=== PATIENT | male | born 2000 | race Caucasian/White ===

== ENCOUNTER 2023-12-07 11:11 | Emergency (ER) | payer OTHER, SELFPAY ==
[2023-12-07 11:11] VITALS: BP 143/89; PULSE 95; RESP 14; TEMP 36.3; O2SAT 95; BMI 35.9
--- NOTE | 2023-12-07 11:20 | EX.ED.UPPERE ---
HPI History of Present Illness Chief Complaint: Laceration Detail of Chief Complaint: Laceration left index finger Informant: patient Onset/Context/Timing Onset: Today and Hours Context: Sudden Onset Timing: - (Patient has no pain.) Location: Radial side of left index finger proximal the PIP joint Current Severity: Gone Maximum Severity: Moderate Worsened by: Injury, initial Relieved by: Not applicable Associated Symptoms Associated Symptoms: Negative for Parasthesia, Weakness or Loss of Funtion Narrative Narrative: Patient is a 23-year-old [id number] male. He presents because of laceration left index finger. This occurred at work. He was using a knife when this happened. He sustained a oblique laceration radial side of the left index finger proximal of the PIP joint. He denies paresthesia, anesthesia motors. He denies loss of function. Who presents because of bleeding. He is on no anticoagulant or antithrombotic Tetanus Immunization: >10 years Prior similar symptoms: No Recent Illness/Hospitalization: No PFSH PFSH Medical History no medical history no medical history Home Medications ?Medication ?Instructions ?Recorded ?Last Taken ?Type cephalexin 500 mg capsule 500 mg PO Q6 #12 CAPSULES 12/07/23 Unknown Rx Allergy/AdvReac Type Severity Reaction Status Date / Time No Known Allergies Allergy Verified 12/07/23 11:12 Family History no significant family his Surgical History no surgical history no surgical history Social History Smoking Status: Never smoker ROS ROS ED Neurologic Neurologic: Denies paresthesias or weakness Hematologic/Lymphatic Hematologic/Lymphatic: Denies easy bleeding or easy bruising EXAM Physical Exam Const Vital Signs: 12/07/23 11:11 Temperature 97.3 F L Temperature Source Temporal Pulse Rate 95 Respiratory Rate 14 Blood Pressure 143/89 H Blood Pressure Mean 107 Pulse Ox 95 Oxygen Delivery Method Room Air Positive well nourished and well developed General Appearance ED: well developed and NAD HEENT Reports moist mucous membranes normocephalic and atraumatic Eyes PERRL Neck full ROM Resp normal respiratory effort Cardio regular rate and regular rhythm Extremity full ROM; Negative for normal to inspection Extremity Narrative: Laceration radial side of left index finger. 2 point semination normal. Cap refill is normal. The flexor digitorum superficialis and flexor digitorum profundus are functionally intact. The extensor IntraSite tendon is functionally intact. Upon exploration prior to anesthetizing the digit there may be involvement of the extensor tendon. Will probe after patient's digit has been blocked. Psych mental status grossly normal Skin Trauma: laceration MDM MDM MDM Narrative Medical decision making narrative: Tetanus was updated and please read procedure note Procedures Other Procedures Procedure(s): Digit was anesthetized with 1% lidocaine by digital block. Upon exploration there was noted the patient did sustain a small laceration approximate 10% of the extensor NSI tendon on the radial side. He got the radial ulnar collateral ligament. There appears to be laceration involving the insertion of the lumbrical muscle to the tensor tendon. Wound was irrigated with 100 cc of sterile saline. The laceration was closed using 5-0 Ethilon. A total of [address] patient in a splint and refer to [place] [facility]. Discharge Plan Triage Chief Complaint: Laceration ED Provider: Aiden Frias Dx/Rx/DC Orders Clinical Impression: Laceration of left index finger with tendon involvement Prescriptions: New cephalexin 500 mg capsule 500 mg PO Q6 Qty: 12 0RF Primary Care Provider: Care Physician,No Primary Referrals: Care Physician,No Primary [Primary Care Provider] - Activity Restrictions/Additional Instructions: Call the [facility] group and inform them the you were seen in the emergency room and have a laceration to your left index finger and there is concern that you got part of your extensor tendon and the collateral ligament on the radial side and lateral bands. You can follow-up with Dr. Charles Szymanski or Abida Navarro telephone #[phone] Wear splint until seen by hand surgeon Print Language: Icelandic Disposition Disposition: Home, Self Care
[2023-12-07] MEDS: Diphth,Pertuss(Acell),Tet Vac 0.5 ML Vial IM (11:34)
[2023-12-07] MEDS: Lidocaine 1% (20 ml mdv) 20 ML Vial INFILT (11:35)
--- NOTE | 2023-12-07 12:44 | ED.RN ---
This RN spoke with Efren pt. manage who stated he did not need drug or alcohol testing.
[2023-12-07 13:03] VITALS: BP 142/72; PULSE 78; RESP 19; TEMP 36.4; O2SAT 97
== END 2023-12-07 13:04 | disposition home or self-care (01) ==
PROVIDERS: Emergency Provider Emergency Medicine; Visit Provider Emergency Medicine
DX: S61.211A Laceration without foreign body of left index finger without damage to nail, initial encounter (principal); X58.XXXA Exposure to other specified factors, initial encounter
CPT/HCPCS: 12001; 90715; 99284

== ENCOUNTER 2025-06-05 13:43 | Emergency (ER) | payer BC, SELFPAY ==
[2025-06-05 13:44] VITALS: BP 154/100; PULSE 91; RESP 16; TEMP 36.2; O2SAT 100
--- NOTE | 2025-06-05 15:11 | VDLE_ITS ---
Reason For Study Reason For Study: LLE PAIN RIGHT LEFT CFV is compressible, spontaneous, phasic, competent GSV is normal. and demonstrates normal augmentation. CFV is compressible, spontaneous, phasic, competent, Procedure and demonstrates normal augmentation. This is a venous duplex using B-mode, color flow and FV is compressible, spontaneous, phasic, competent spectral Doppler. and demonstrates normal augmentation. Exam performed portable in ED. POP V is compressible, spontaneous, phasic, competent A preliminary report was called and/or faxed to ED @ and demonstrates normal augmentation. 15:35. T/P Trunk is compressible. PTV is compressible. LT PerV is compressible. VL/Venous Duplex US, Unilateral Interpretation Summary Deep veins of the left lower extremity are patent and compressible segmentally. There is no evidence of left lower extremity deep vein thrombosis. Valvular competence appears intact within the p roximal deep venous system on the left . The left great saphenous vein appears patent and compressible segmentally. The right common femoral vein is patent and compressible . Ordering Physician: Adonis Russ Referring Physician: LISA PCP Performed By: Agnieszka Barrientos, MELISSA, RVT
--- NOTE | 2025-06-05 15:12 | ED.VIS.LOWEX ---
HPI History of Present Illness HPI Narrative: 25-year-old male no [facility] past medical or surgical history. He has had atraumatic pain behind his left knee in the patella fossa for the last 5 days. It comes and goes. No chest pain. No shortness of breath. No history of DVT or PE. No recent travel, surgery or immobilization. Mom and sister have had blood clots in the past. But he does not believe they have a clotting disorder. He denies any weakness to his leg. Nothing particular makes it better or worse. No swelling. No other complaints. Chief Complaint: Lower Extremity Injury Informant: patient Occured/Mechanism Mechanism/Context: No injury and No blunt trauma Onset/Context/Timing Onset: Days Context: Gradual Onset Timing: Intermittent Quality of Pain: Dull and Aching Location: Dull pain behind his left patella fossa. Current Severity: Gone Maximum Severity: Mild Associated Symptoms Associated Symptoms: Negative for Parasthesia, Weakness or Loss of Funtion Narrative Narrative: Healthy 25-year-old male with atraumatic pain in his left patella fossa intermittent for 5 days. No DVT or PE history or risk factors mom and sister reportedly that blood clots but he does not believe they have a clotting disorder. Prior similar symptoms: No Recent Illness/Hospitalization: No PFSH PFSH Medical History no medical history no medical history Home Medications ?Medication ?Instructions ?Recorded ?Last Taken ?Type cephalexin 500 mg capsule 500 mg PO Q6 #12 CAPSULES 12/07/23 Unknown Rx Allergy/AdvReac Type Severity Reaction Status Date / Time No Known Allergies Allergy Verified 06/05/25 13:44 Family History no significant family his Surgical History Hx of adenoidectomy History of placement of ear tubes Social History Smoking Status: Light Smoker (<10/day) ROS ROS ED ROS Narrative Denies recent illness. Constitutional Constitutional ED: Denies chills or fever(s) Eyes Eyes: Denies blurry vision ENT ENT ED: Denies ear pain Cardiovascular Cardiovascular: Denies chest pain Respiratory/Chest Respiratory/Chest: Denies cough Gastrointestinal Gastrointestinal: Denies abdominal pain Genitourinary Genitourinary ED: Denies dysuria Integumentary Denies abscess Neurologic Neurologic: Denies headache(s) Psychiatric Psychiatric: Denies anxiety Endocrine Endocrinology: Denies polydipsia Hematologic/Lymphatic Hematologic/Lymphatic: Denies easy bleeding Allergic/Immunologic Allergic/Immunologic ED: Denies mouth swelling, tongue swelling or urticaria EXAM Physical Exam Narrative Exam Narrative: Well-appearing 25-year-old male. Vital signs stable afebrile. Pulse ox 100% on room air no signs hypoxia. Blood pressure is mildly elevated 154/100. H EENT exam pupils round react light. Moist mutes membranes. Neck nontender no JVD. No lymphadenopathy. Lungs clear to auscultation bilaterally. Heart regular rhythm rate about 90 no murmur. Chest wall ribs nontender. Abdomen soft nontender. No peritoneal signs. Back nontender. Moving all 4 extremities. 5-5 [employer] worker strength. Dorsi plantarflexion intact. He can lift either leg off the bed. They are normal in appearance. Equal symmetrical strong DP pulses. Dorsi plantarflexion intact with normal strength. Normal sensation. He has discomfort at times in his left popliteal fossa but there is currently no pain. It is nontender there is no redness or swelling. No edema or cords. Left calf is nontender. He is able to wiggle his toes he has normal touch sensation. There is no inguinal lymphadenopathy. There is no redness or discoloration. He has full flexion extension of the left hip, knee and ankle. He has a palpable femoral pulse. Neurologically is awake alert no focal motor deficits. Normal sensation. Benign exam. Const Vital Signs: 06/05/25 13:44 Temperature 97.1 F L Temperature Source Temporal Pulse Rate 91 Respiratory Rate 16 Blood Pressure 154/100 H Blood Pressure Mean 118 Pulse Ox 100 Oxygen Delivery Method Room Air MDM MDM MDM Narrative Medical decision making narrative: 25-year-old male with atraumatic pain intermittently in his popliteal fossa on the left. Normal exam with strength sensation and DP pulse. Normal range of motion. No swelling or tenderness. No discoloration. Ultrasound of the leg to be obtained. I think it will be unlikely that he would have a blood clot because he has no risk factors for it. Repeat exam unchanged. Normal strength, sensation normal appearance of the skin. No redness no streaks no reproducible tenderness. The noninvasive study of his left lower extremity showed no clot. I discussed this with the patient is comfortable being discharged home with outpatient follow-up. He is comfortable with the plan. History & Record Review Discussion w/independent historian: Patient Additional record(s) reviewed:: Prior ED visit Discharge Plan Triage Chief Complaint: Lower Extremity Injury Other Complaint: Chest Other Upper Extremity Injury ED Provider: Adonis Russ Dx/Rx/DC Orders Clinical Impression: Acute leg pain Instructions: ED Pain, Acute, Uncertain Cause Prescriptions: No Action cephalexin 500 mg capsule 500 mg PO Q6 Qty: 12 0RF Primary Care Provider: Care Physician,No Primary Referrals: Charles Mckoy MD [Med Staff - Spanish Interpreter/Translator, Family Practice] - 1 Week if not improving Care Physician,No Primary [Primary Care Provider, Medical] Activity Restrictions/Additional Instructions: Your leg exam is normal. Your ultrasound shows no signs of a blood clot. Most likely musculoskeletal pain. Motrin and Tylenol for pain. If not improving follow-up. If you would develop a fever, redness or swelling return. But there is no signs of any type of infection at this time. Print Language: Frisian Disposition Disposition: Home, Self Care
[2025-06-05 15:52] VITALS: BP 138/58; PULSE 72; RESP 14; TEMP 36.6; O2SAT 99
--- OUTSIDE RECORDS SUMMARY | 2025-06-05 20:30 | XMS RPT_ITS | CCD ---
Author Organization [facility] ion Partnership [facility] Care Team Providers Care Head Banquet Waiter/Waitress Name Role Phone SPUHLER, VETO Unavailable Unavailable IMCA Unavailable Unavailable SPUHLER, VETO Unavailable Unavailable SPUHLER, VETO Unavailable Unavailable SPUHLER, VETO Unavailable Unavailable IMCA Unavailable Unavailable SPUHLER, VETO Unavailable Unavailable SPUHLER, VETO Unavailable Unavailable SPUHLER, VETO Unavailable Unavailable SPUHLER, VETO Unavailable Unavailable IMCA Unavailable Unavailable SPUHLER, VETO Unavailable Unavailable LUCIA ARORA (FITNESS/WELLNESS DIRECTOR) Unavailable Unavailabl e SPUHLER, VETO Unavailable Unavailable LUCIA ARORA (FITNESS/WELLNESS DIRECTOR) Unavailable Unavailabl e Spuhler, Veto B (Glass Cutting Machine Feeder Fitter'S Assistant) Primary Care Provi val Unavailable Primary Care Provider Unavailabl e Spuhler, Veto B Primary Care Provider Unavail able Spuhler TOWER ERECTOR HELPER.FITNESS/WELLNESS DIRECTOR, Veto B Primary Care Provide r Jose Benjamin Unavailable Unavailable Aiden Frias Attending Unavailable Care Physician, No Primary Primary Care Unava ilable Medications Current Medications Medication Drug Class(es) Dates Sig (Normalized) Sig (Original) amoxicillin 875 mg / clavulanate 125 mg oral tablet (2 sources) Penicillin-class Antibacterial Start: 10-25-2020 End: 11-01-2020 take 1 tablet by mouth every twelve hours amoxicillin-clavula jenny acid (AUGMENTIN) 875-125 mg per tablet Indications: Left sided colitis with unspecified complications (HCC) Take 1 tablet by mouth every 12 hours for 7 days. 14 tablet 0 10/25/2020 11/01/2020 Active Start: 06-26-2020 End: 07-03-2020 take 1 tablet by mouth every twelve hours amoxicillin-clavulanic acid (AUGMENTIN) 875-125 mg per tablet Indications: Acute non-recurrent sinusitis of other sinus Take 1 tablet by mouth every 12 hours for 7 days. 14 tablet 0 06/26/2020 07/03/2020 Active Comment on above: Take 1 tablet by melanie th every 12 hours for 7 days. metoclopramide 10 mg oral tablet (2 sources) Dopamine-2 Receptor Antagonist Start: End: metoclopramide (REGLAN) tablet 10 mg naproxen 500 mg oral tablet (6 sources) Nonsteroidal Anti-inflammatory Drug Start: End: take 1 tablet by mouth twice daily at mealtime naproxen (NAPROSYN) 500 MG tablet Indications: Acute right eye pain , Nonintractable headache, unspecified chronicity pattern, unspecified headache type Take 1 tablet by mouth 2 times daily (with meals) for 15 days 30 tablet 0 08/09/2020 08/24/2020 Active Comment on above: Take 1 tablet by melanie twice daily with meals. FOR PAIN. TAKE WITH FOOD. Take 1 tablet by melanie th twice daily as needed. FOR PAIN. TAKE WITH FOOD. Completed/Discontinued Medications Medication Drug Class(es) Dates Sig (Normalized) Sig (Original) acetaminophen 500 mg oral tablet (1 source) Start: 08-11-2020 End: 08-11-2020 acetaminophen (TYLENOL) tablet 1,000 mg Start: 08-11-2020 End: 08-11-2020 acetaminophen (TYLENOL) tabl et 1,000 mg aspirin 81 mg chewable tablet (1 source) Platelet Aggregation Inhibitor, Nonsteroidal Anti-inflammatory Drug Start: 07-22-2020 End: 07-22-2020 aspirin chewable tablet 324 mg calcium chloride 0.0014 meq/ml / potassium chloride 0.004 meq/ml / sodium chloride 0.103 meq/ml / sodium lactate 0.028 meq/ml injectable solution (1 source) Start: 08-11-2020 End: 08-11-2020 lactated ringers bolus cyclobenzaprine hydrochloride 10 mg oral tablet (3 sources) Muscle Relaxant Start: 07-31-2020 take 1 tablet by mouth twice daily as needed cyclobenzaprine (FLEXERIL) 10 mg tablet Indications: Acute cervical myofascial strain, initial encounter Take 1 tablet by mouth twice daily as needed. 45 tablet 0 07/31/2020 Active Comment on above: Take 1 tablet by [facility] twice daily as needed. dexamethasone phosphate 10 mg/ml injectable solution (1 source) Corticosteroid Start: 08-11-2020 End: 08-11-2020 dexamethasone (DECADRON) injection 8 mg doxycycline hyclate 100 mg oral capsule (2 sources) Tetracycline-class Drug Start: 07-31-2020 End: 08-07-2020 take 1 capsule by mouth twice daily doxycycline hyclate (VIBRAMYCIN) 100 mg capsule Indications: Bacterial sinusitis Take 1 capsule by mouth twice daily for 7 days. 14 capsule 0 07/31/2020 08/07/2020 Active Comment on above: Take 1 capsule by [facility] twice daily for 7 days. FLUoxetine 20 mg oral capsule (1 source) Serotonin Reuptake Inhibitor Start: 08-24-2017 End: 06-26-2020 take 1 capsule by mouth once daily FLUoxetine (PROZAC) 20 mg capsule Indications: Raynaud's phenomenon without gangrene Take 1 capsule by mouth once daily. 30 capsule 11 08/24/2017 06/26/2020 Discontinued (Discontinued by Patient) Comment on above: Take 1 capsule by [facility] once daily. methylPREDNISolone (1 source) Corticosteroid Start: 10-14-2017 End: 06-26-2020 methylPREDNISolone (MEDROL, STEFFANY,) 4 mg Dose-Pack As Instructed per package 1 Package 0 10/14/2017 06/26/2020 Discontinued (Course of therapy completed) Comment on above: As Instructed per kori vargas ondansetron 4 mg oral tablet (1 source) Serotonin-3 Receptor Antagonist Start: 10-14-2017 End: 06-26-2020 take 1-2 tablets by mouth every eight hours as needed for nausea ondansetron (ZOFRAN) 4 mg tablet 1 to 2 tablets PO every 8 hours prn nausea 30 tablet 0 10/14/2017 06/26/2020 Discontinued (Course of therapy completed) Comment on above: 1 to 2 tablets PO ev trell 8 hours prn nausea Problems Active Problems Problem Classification Problem Date Documented Da te Episodic/Chronic Allergic reactions (4 sources) Atopic dermatitis; Translations: [Intrinsic (allergic) eczema] Onset: 07-27-2017 07-27-2017 Chronic Open wounds of extremities (1 source) Laceration without foreign body of left index finger without damage to nail, initial encounter; Translations: [Laceration without foreign body of left index finger without damage to nail, initial encounter] Onset: 12-20-2023 Episodic Other circulatory disease (4 sources) Raynaud's phenomenon ; Translations: [Raynaud's syndrome without gangrene] Onset: 08-24-2017 08-24-2017 Chronic Other circulatory disease (2 sources) Increased diastolic arterial pressure; Translations: [Diastolic blood pressure 90 mm Hg or higher] Episodic Other nervous system disorders (1 source) Bilateral carpal tunnel syndrome; Translations: [Carpal tunnel syndrome, bilateral upper limbs] Onset: 06-21-2020 06-26-2020 Chronic Other nervous system disorders (4 sources) Bilateral carpal tunnel syndrome; Translations: [Carpal tunnel syndrome, bilateral] Onset: 06-21-2020 06-26-2020 Other nutritional; endocrine; and metabolic disorders (1 source) Obese class I; Translations: [Obesity, unspecified] Onset: 07-31-2020 07-31-2020 Chronic Other nutritional; endocrine; and metabolic disorders (3 sources) Obese class I; Translations: [Obesity, Class I, BMI 30-34.9] Onset: 07-31-2020 07-31-2020 Other upper respiratory infections (1 source) Bacterial sinusitis; Translations: [Bacterial sinusitis] Chronic Other upper respiratory infections (1 source) Acute sinusitis; Translations: [Acute non-recurrent sinusitis of other sinus] Episodic Residual codes; unclassified (5 sources) Family history of cancer of colon; Translations: [Family history of malignant neoplasm of digestive organs] 06-26-2020 Episodic Unclassified (1 source) Unknown / UNK(Unknown) Onset: 08-24-2017 Unclassified (3 sources) Strain of left trapezius muscle; Translations: [Trapezius strain, left, initial encounter] Onset: 08-24-2017 08-24-2017 Unclassified (1 source) Patient encounter status; Translations: [Routine general medical examination at a health care facility] Past or Other Problems Problem Classification Problem Date Documented Da te Episodic/Chronic Headache; including migraine (2 sources) Headache disorder; Translations: [Headache disorder] Onset: 06-21-2020 08-12-2020 Episodic Other upper respiratory disease (4 sources) Bleeding from nose; Translations: [Epistaxis] Onset: 07-27-2017 07-27-2017 Episodic Sprains and strains (2 sources) Strain of neck muscle; Translations: [Strain of left trapezius muscle] Onset: 08-24-2017 08-24-2017 Episodic Unclassified (1 source) Strain of other muscles, fascia and tendons at shoulder and upper arm level, left arm, initial encounter Onset: 08-24-2017 Results Test Name Value Interpretation Reference Range Facility Emergency Department Summary on 12-07-2023 Emergency Department Summary [facility] Medical Records Department [address] [place] [address] Emergency Department Summary 12/07/23 MR#: [id number] Acct: [id number] Name: WARNER WILSON Rep #: [id number] : 2000 23 From: Aiden Frias MD PCP: Care Physician,No Primary Status:REG ER Location: ED HPI History of Present Illness Chief Complaint: Laceration Detail of Chief Complaint: Laceration left index finger Informant: patient Onset/Context/Timing Onset: Today and Hours Context: Sudden Onset Timing: - (Patient has no pain.) Location: Radial side of left index finger proximal the PIP joint Current Severity: Gone Maximum Severity: Moderate Worsened by: Injury, initial Relieved by: Not applicable Associated Symptoms Associated Symptoms: Negative for Parasthesia, Weakness or Loss of Funtion Narrative Narrative: Patient is a 23-year-old jfzyu-vxil-qmvbokin male. He presents because of laceration left index finger. This occurred at work. He was using a knife when this happened. He sustained a oblique laceration radial side of the left index finger proximal of the PIP joint. He denies paresthesia, anesthesia motors. He denies loss of function. Who presents because of bleeding. He is on no anticoagulant or antithrombotic Tetanus Immunization: >10 years Prior similar symptoms: No Recent Illness/Hospitalization : No PFSH PFSH Medical History no medical history no medical history Home Medications ???Medication ???Instructions ???Recorded ???Last Taken ???Type cephalexin 500 mg capsule 500 mg PO Q6 #12 CAPSULES 12/07/23 Unknown Rx Allergy/AdvReac Type Severity Reaction Status Date / Time No Known Allergies Allergy Verified 12/07/23 11:12 Family History no significant family his Surgical History no surgical history no surgical history Social History Smoking Status: Never smoker ROS ROS ED Neurologic Neurologic: Denies paresthesias or weakness Hematologic/Lymphatic Hematologic/Lymphatic: Denies easy bleeding or easy bruising EXAM Physical Exam Const Vital Signs: 12/07/23 11:11 Temperature 97.3 F L Temperature Source Temporal Pulse Rate 95 Respiratory Rate 14 Blood Pressure 143/89 H Blood Pressure Mean 107 Pulse Ox 95 Oxygen Delivery Method Room Air Positive well nourished and well developed General Appearance ED: well developed and NAD HEENT Reports moist mucous membranes normocephalic and atraumatic Eyes PERRL Neck full ROM Resp normal respiratory effort Cardio regular rate and regular rhythm Extremity full ROM; Negative for normal to inspection Extremity Narrative: Laceration radial side of left index finger. 2 point semination normal. Cap refill is normal. The flexor digitorum superficialis and flexor digitorum profundus are functionally intact. The extensor IntraSite tendon is functionally intact. Upon exploration prior to anesthetizing the digit there may be involvement of the extensor tendon. Will probe after patient's digit has been blocked. Psych mental status grossly normal Skin Trauma: laceration MDM MDM MDM Narrative Medical decision making narrative: Tetanus was updated and please read procedure note Procedures Other Procedures Procedure(s): Digit was anesthetized with 1% lidocaine by digital block. Upon exploration there was noted the patient did sustain a small laceration approximate 10% of the extensor NSI tendon on the radial side. He got the radial ulnar collateral ligament. There appears to be laceration involving the insertion of the lumbrical muscle to the tensor tendon. Wound was irrigated with 100 cc of sterile saline. The laceration was closed using 5-0 Ethilon. A total of [address] patient in a splint and refer to [facility]. Discharge Plan Triage Chief Complaint: Laceration ED Provider: Aiden Frias Dx/Rx/DC Orders Clinical Impression: Laceration of left index finger with tendon involvement Prescriptions: New cephalexin 500 mg capsule 500 mg PO Q6 Qty: 12 0RF Primary Care Provider: Care Physician,No Primary Referrals: Care Physician,No Primary [Primary Care Provider] - Activity Restrictions/Additional Instructions: Call the [facility] hand group and inform them the you were seen in the emergency room and have a laceration to your left index finger and there is concern that you got part of your extensor tendon and the collateral ligament on the radial side and lateral bands. You can follow-up with Dr. Charles Szymanski or Abida Navarro telephone #[phone] Wear splint until seen by hand surgeon Print Language: Uzbek Disposition Disposition: Home, Self Care What to do if you have Problems For any increased pain, shortness of breath, bleeding, nausea (more content not included)... [facility] ALLIED HEALTHon 11-16-2021 ALLIED HEALTH HNO ID: [id number] Author: RT Brando(R) Service: Radiology Author Type: Technologist Type: Allied Health Filed: 11/16/2021 8:35 PM Note Text: Radiology Service Progress Note PATIENT NAME: Warner Wilson DATE OF SERVICE: November 16, 2021 TIME: 8:35 PM PATIENT IDENTITY VERIFICATION COMPLETED USING TWO (2) IDENTIFIERS: Name and Date of confirmed by patient verbally and Name and Date of confirmed by identification band. FALL SCREENING: Has the patient had 2 falls in the last year or 1 fall with injury or currently using an Ambulatory Assistive Device (Walker, Cane, Wheelchair, Crutches, etc.)? Emergency Room Patient: Screened in ED PATIENT GENDER DATA: Male PATIENT RELEVANT IMPLANT DATA REVIEWED: Not Applicable RADIOLOGY DEPARTMENT: General X-ray: Exam(s) Completed: Lower Extremity X-Ray(s): Ankle, Left PERIPHERAL IV DATA: Not applicable SIGNED BY: RT Brando(R) November 16, 2021 8:35 PM [facility] ED NOTEon 11-16-2021 ED NOTE HNO ID: [id number] Author: Yesica Anders RN Service: Emergency Medicine Author Type: Registered Nurse Type: ED Notes Filed: 11/16/2021 9:06 PM Note Text: Discussed discharge instructions with pt and the importance of follow up with PCP. Education provided including s/s to return to ER. Pt verbalized understanding. Pt resp even and unlabored with no s/s of distress noted. Pt able to speak in complete sentences without difficulty. All questions answered and pt denies any needs at this time. Pt ambulatory with steady gait on departure. [facility] ED NOTE HNO ID: [id number] Author: Tyrone Lemus DO Service: Emergency Medicine Author Type: Physician Type: ED Notes Filed: 11/19/2021 4:59 PM Note Text: Attending Note I evaluated the patient and personally participated in the walter components. I agree with the resident's findings and plan as documented and have discussed the case and management of the patient's care with the resident. This is a 21-year-old male coming in with a left ankle pain. He was playing basketball today when he twisted his ankle. He has been able to walk on it. Denies numbness or tingling in the foot. No calf pain. No knee pain. No fall. No other complaints. He is awake alert oriented x3. Head atraumatic normocephalic. Pharynx patent without stridor. Left dorsalis pedis and posterior tibial pulses are intact. There is swelling with tenderness over the lateral malleolus. No fifth metatarsal head tenderness. No fibular head tenderness. Sensation intact. Range of motion of the ankle is intact. No ligamentous laxity. Capillary refill less than 2 seconds. No knee pain to palpation. X-ray does not show any fracture. This is likely an ankle sprain. He will get an ankle splint and follow-up as needed. He is agreeable with the plan. [facility] ED NOTE HNO ID: [id number] Author: Jerry Corley RN Service: Emergency Medicine Author Type: Registered Nurse Type: ED Notes Filed: 11/16/2021 7:39 PM Note Text: Pt presents to the ED s/p L ankle injury while playing basketball in [employer] [facility]. L ankle is swollen laterally. Normal [facility] ED PROV NOTEon 11-16-2021 ED PROV NOTE HNO ID: [id number] Author: Tyrone Lemus DO Service: Emergency Medicine Author Type: Physician Type: ED Provider Notes Filed: 11/19/2021 4:31 PM Note Text: ED Provider Note Patient Name: Warner Wilson : 2000 SERVICE DATE: 11/16/21 History Patient presents with: Ankle Injury: L ankle rolled while playing basketball in [facility] HPI Patient is a 21-year-old male with a past medical history as documented below who presents emergency department for evaluation of left ankle injury. He states he was playing basketball while wearing his crocs with his friends when he came down awkwardly after rebound. He states that he rolled the ankle at this time and has had pain and swelling since then. He did initially place it in some ice. He has not taken anything for the pain. Did not hear or feel a pop at the time of the injury. He is still able to move it though he endorses pain with this. Normal sensation. Denies any other injury. No blood thinner use. No other complaints at this time. PAST MEDICAL HISTORY Diagnosis Date - Carpal tunnel syndrome on both sides 06/2020 - Family history of colon cancer in mother age: 52 - needs screened at 40 - Headache disorder [address] in [facility] ED 08/11/2020 - History of tympanostomy tube placement - Raynaud's syndrome PAST SURGICAL HISTORY Procedure Laterality Date - ADENOIDECTOMY HX 2008 - TYMPANOSTOMY LOCAL/TOPICAL ANESTHESIA 2009 X 2 FAMILY HISTORY Problem Relation Age of Onset - Asthma Sister - Mental illness Sister - Breast Cancer Other - other (DEMENTIA) Other - other (DIABETES MELLITUS) Other - other (HEART DISEASE) Other - other (HYPERLIPDEMIA) Other - Hypertension Other - other (MIGRAINE) Other - other (RHEUMATOID ARTHRITIS) Other - Skin Cancer Other - Stroke Other - other (THYROID DISORDER) Other - other (COLITIS) Other - Colon Cancer Mother 52 - Breast Cancer Mother 54 - Ulcerative Colitis Mother Social History Tobacco Use - Smoking status: Never Smoker - Smokeless tobacco: Never Used Vaping Use - Vaping Use: Never used Substance and Sexual Activity - Alcohol use: No - Drug use: Never - Sexual activity: Yes Partners: Female control/protection: None ALLERGIES No Known Allergies Review of Systems Constitutional: Negative for chills, diaphoresis, fatigue and fever. HENT: Negative for facial swelling, rhinorrhea and sore throat. Respiratory: Negative for cough, shortness of breath and wheezing. Cardiovascular: Negative for chest pain, palpitations and leg swelling. Gastrointestinal: Negative for diarrhea, nausea and vomiting. Musculoskeletal: Positive for arthralgias and myalgias. Negative for back pain and neck pain. Skin: Negative for color change, pallor, rash and wound. Neurological: Negative for dizziness, tremors, numbness and headaches. Physical Exam Vitals [11/16/211933] BP Pulse Temp Temp src Resp SpO2 Weight Height 133/94 84 37.5 ?C (99.5 ?F) Tympanic 18 96 % 97.5 kg (215 lb) 1.727 m (5' 8) Physical Exam Vitals and nursing note reviewed. Constitutional: Appearance: He is well-developed. Comments: Patient lying in bed comfortably, overall nontoxic-appearing. Alert and oriented x3, answering questions appropriately and pleasantly. HENT: Head: Normocephalic and atraumatic. Right Ear: External ear normal. Left Ear: External ear normal. Nose: Nose normal. Mouth/Throat: Pharynx: Oropharynx is clear. Eyes: Extraocular Movements: Extraocular movements intact. Conjunctiva/sclera: Conjunctivae normal. Cardiovascular: Rate and Rhythm: Normal rate and regular rhythm. Pulses: Normal pulses. Pulmonary: Effort: Pulmonary effort is normal. No respiratory distress. Breath sounds: Normal breath sounds. No wheezing, rhonchi or rales. Chest: Chest wall: No tenderness. Abdominal: General: Abdomen is flat. There is no distension. Palpations: Abdomen is soft. Tenderness: There is no abdominal tenderness. There is no guarding or rebound. Musculoskeletal: General: Swelling and tenderness present. Normal range of motion. Cervical back: Normal range of motion and neck supple. No rigidity or tenderness. Comments: There is tenderness over the lateral malleolus on the left lower extremity with swelling in the area. Cap refill is normal 2+ DP and PT pulses. Sensation intact. Motor grossly intact though he does have some pain with plantar and dorsiflexion. Remainder of extremity exam unremarkable. Skin: General: Skin is warm and dry. Capillary Refill: Capillary refill takes less than 2 seconds. Coloration: Skin is not pale. Neurological: Comments: Moving extremities spontaneously. GCS 15. No focal deficits appreciable. Diagnostic Testing ED Labs Ordered and Reviewed - No data to display Procedures ED Course / Clinical Impression ED Course as of 11/17/21 0020 Jerry Garza's Documentation Sun (more content not included)... Normal [facility] XR ANKLE 3V AP/LAT/OBL LTon 11-16-2021 XR ANKLE 3V AP/LAT/OBL LT * * *Final Report* * * DATE OF EXAM: Nov 16 2021 8:14PM [id number] [id number] - XR ANKLE 3V AP/LAT/OBL LT / PROCEDURE REASON: Ankle dislocation * * * * Physician Interpretation * * * * EXAM TITLE: LEFT XR ANKLE 3V AP/LAT/OBL LT DATE 11/16/2021 COMPARISON: None. CLINICAL INDICATION/HISTORY: The patient presents with left ankle pain. Recent vascular injury. TECHNIQUE: AP, lateral and oblique views of the ankle are presented. RESULT: No fractures or subluxations are noted. No bony erosions are seen. The joint spaces are well preserved. There is no evidence of joint effusion. The mineralization of the bones is normal. Moderate lateral soft tissue swelling. IMPRESSION: Prominent lateral soft tissue swelling. No radiographic evidence of acute left ankle fracture or dislocation. Mixer Operator Tablets: PSCB Transcribe Date/Time: Nov 16 2021 8:21P Dictated by : BARI ORELLANA MD This examination was interpreted and the report reviewed and electronically signed by: BARI ORELLANA MD on Nov 16 2021 8:24PM EST [id number] Normal [facility] CNCOon 10-31-2020 CNCO Letter Text Normal [facility] Basic Metabolic Panelon 02 Calcium [Mass/Vol] 9.5 mg/dL Normal 8.4-10.4 [facility] Comment on above: Performed By: #### B MP3, TSH5, MG3, HEMDF, ESR #### [facility] [employer] [facility] [address] [place] [address] #### CMXD #### [address] [id number] Glucose [Mass/Vol] 107 mg/dL High 70-100 [facility] Comment on above: Performed By: #### B MP3, TSH5, MG3, HEMDF, ESR #### [facility] [employer] [facility] [address] [place] [address] #### CMXD #### [address] [id number] Anion gap [Moles/Vol] 7 mmol/L Normal - [facility] Comment on above: Performed By: #### B MP3, TSH5, MG3, HEMDF, ESR #### [facility] [employer] [facility] [address] [place] [id number] #### CMXD #### [facility] [address] [place] [address] CO2 [Moles/Vol] 32 mmol/L High 22-30 [facility] Comment on above: Performed By: #### B MP3, TSH5, MG3, HEMDF, ESR #### [address] [address] #### CMXD #### [address] Creatinine [Mass/Vol] 0.76 mg/dL Normal 0.52-1.25 [facility] Comment on above: Performed By: #### B MP3, TSH5, MG3, HEMDF, ESR #### [address] [address] #### CMXD #### [address] GFR/1.73 sq M predicted among blacks MDRD (S/P/Bld) [Vol rate/Area] mL/min/{1.73_m2} Normal >60 [facility] Comment on above: Performed By: #### B MP3, TSH5, MG3, HEMDF, ESR #### [address] [address] #### CMXD #### [address] GFR/1.73 sq M predicted among non-blacks MDRD (S/P/Bld) [Vol rate/Area] mL/min/{1.73_m2} Normal >60 [facility] Comment on above: Result Comment: KDIG O guidelines provide the following GFR categories: Stage GFR(ml/min/1.73 m2) Terms G1 >=90 Normal or high G2 60-89 Mildly decreased* G3a 45-59 Mildly to moderately decreased G3b 30-44 Moderately to severely decreased G4 15-29 Severely decreased G5 <15 Kidney failure *Relative to young adult level. In the absence of evidence of kidney damage, neither GFR category G1 nor G2 fulfill the criteria for CKD. The CKD-EPI equation is validated in individuals 18 years of age and older. Currently the best equation for estimating glomerular filtration rate (GFR) from serum creatinine in children is the Bedside Santoyo equation. It is less accurate in patients with extremes of muscle mass, restriction of dietary protein, ingestion of creatine, extra-renal metabolism of creatinine, or treatment with medications that affect renal tubular creatinine secretion. Performed By: #### B MP3, TSH5, MG3, HEMDF, ESR #### [address] [address] #### CMXD #### [address] [address] Urea nitrogen [Mass/Vol] 17 mg/dL Normal 7-20 [facility] Comment on above: Performed By: #### B MP3, TSH5, MG3, HEMDF, ESR #### [address] [address] #### CMXD #### [address] Chloride [Moles/Vol] 101 mmol/L Normal 98-107 [facility] Comment on above: Performed By: #### B MP3, TSH5, MG3, HEMDF, ESR #### [address] [address] #### CMXD #### [address] [address] Potassium [Moles/Vol] 4.0 mmol/L Normal 3.5-5.1 [facility] Comment on above: Performed By: #### B MP3, TSH5, MG3, HEMDF, ESR #### [address] [address] #### CMXD #### [address] [address] Sodium [Moles/Vol] 141 mmol/L Normal 135-145 [facility] Comment on above: Performed By: #### B MP3, TSH5, MG3, HEMDF, ESR #### [address] [place] [address] #### CMXD #### [employer] [facility] [address] [place] [address] Anion gap [Moles/Vol] 7 mmol/L 3 - 13 mmol/L [facility] Work Phone: Calcium [Mass/Vol] 9.5 mg/dL 8.4 - 10. 4 mg/dL [facility] Work Phone: Chloride [Moles/Vol] 101 mmol/L 98 - 10 7 mmol/L [facility] Work Phone: CO2 [Moles/Vol] 32 mmol/L High 22 - 30 mmol/L [facility] Work Phone: Creatinine [Mass/Vol] 0.76 mg/dL 0.52 - 1.25 mg/dL [facility] Work Phone: EGFR IF NonAfrican Martiniquais >90.0 >60 mL/min [facility] Work Phone: Comment on above: KDIGO guidelines pro vide the following GFR categories: Stage GFR(ml/min/1.73 m2) Terms G1 >=90 Normal or high G2 60-89 Mildly decreased* G3a 45-59 Mildly to moderately decreased G3b 30-44 Moderately to severely decreased G4 15-29 Severely decreased G5 <15 Kidney failure *Relative to young adult level. In the absence of evidence of kidney damage, neither GFR category G1 nor G2 fulfill the criteria for CKD. The CKD-EPI equation is validated in individuals 18 years of age and older. Currently the best equation for estimating glomerular filtration rate (GFR) from serum creatinine in children is the Bedside Santoyo equation. It is less accurate in patients with extremes of muscle mass, restriction of dietary protein, ingestion of creatine, extra-renal metabolism of creatinine, or treatment with medications that affect renal tubular creatinine secretion. GFR/1.73 sq M predicted among blacks MDRD (S/P/Bld) [Vol rate/Area] mL/min/{1.73_m2} >60 mL/min [facility] Work Phone: Glucose [Mass/Vol] 107 mg/dL High 70 - 100 mg/dL [facility] Work Phone: Interpretation and review of laboratory results Abnormal [facility] Work Phone: Potassium [Moles/Vol] 4.0 mmol/L 3.5 - 5.1 mmol/L [facility] Work Phone: Sodium [Moles/Vol] 141 mmol/L 135 - 145 mmol/L [facility] Work Phone: Urea nitrogen [Mass/Vol] 17 mg/dL 7 - 20 mg/dL [facility] Work Phone: CT HEAD WO CONTRASTon 2020 Patient Name: WARNER WILSON Computed Tomography ACCESSION EXAM DATE/TIME PROCEDURE ORDERING PROVIDER [id number] 08/11/2020 19:[address] Head or Brain w/o MD INES, CLAUDIO Contrast CPT code 85073 Reason For Exam (CT Head or Brain w/o Contrast) Headache; r/o Subarachnoid hemorrhage; Sudden severe headache; Neck pain or stiffness Report CLINICAL INFORMATION: Acute onset of severe headache. CT HEAD WITHOUT INTRAVENOUS CONTRAST: Volume acquisition CT images are obtained from foramen magnum to vertex without intravenous contrast with axial, coronal and sagittal 2-D reconstructions. The ventricles and sulci are normal in size and configuration. No intra-axial mass lesion or mass-effect is seen. There is no evidence of acute intracranial hemorrhage or other focal abnormal intra-axial densities. The mastoid air cells and included paranasal sinuses are clear. The right frontal sinus is essentially nonaerated. IMPRESSION: No evidence of acute intracranial abnormality. Report Dictated on --- Final --- Dictated: 08/11/2020 7:50 pm Dictating Physician: MD RIOS HARLAN Signed Date and Time: 08/11/2020 7:56 pm Signed by: MD RIOS HARLAN Transcribed Date and Time: 08/11/2020 7:50 [facility] Work Phone: Jeff, [facility] Incoming Radiology Results From [facility] - 08/11/2020 7:57 PM EST Patient Name: WARNER WILSON Computed Tomography ACCESSION EXAM DATE/TIME PROCEDURE ORDERING PROVIDER [id number] 08/11/2020 19:[address] Head or Brain w/o MD INES, CLAUDIO Contrast CPT code 16510 Reason For Exam (CT Head or Brain w/o Contrast) Headache; r/o Subarachnoid hemorrhage; Sudden severe headache; Neck pain or stiffness Report CLINICAL INFORMATION: Acute onset of severe headache. CT HEAD WITHOUT INTRAVENOUS CONTRAST: Volume acquisition CT images are obtained from foramen magnum to vertex without intravenous contrast with axial, coronal and sagittal 2-D reconstructions. The ventricles and sulci are normal in size and configuration. No intra-axial mass lesion or mass-effect is seen. There is no evidence of acute intracranial hemorrhage or other focal abnormal intra-axial densities. The mastoid air cells and included paranasal sinuses are clear. The right frontal sinus is essentially nonaerated. IMPRESSION: No evidence of acute intracranial abnormality. Report Dictated on --- Final --- Dictated: 08/11/2020 7:50 pm Dictating Physician: MD RIOS HARLAN Signed Date and Time: 08/11/2020 7:56 pm Signed by: MD RIOS HARLAN Transcribed Date and Time: 08/11/2020 7:50 [facility] Work Phone: CT Head or Brain w/o Contras ton 08-11-2020 CT Head or Brain w/o Contrast Patient Name: WARNER WILSON Computed Tomography ACCESSION EXAM DATE/TIME PROCEDURE ORDERING PROVIDER [id number] 08/11/2020 19:[address] Head or Brain w/o MD INES, CLAUDIO Contrast CPT code 50234 Reason For Exam (CT Head or Brain w/o Contrast) Headache; r/o Subarachnoid hemorrhage; Sudden severe headache; Neck pain or stiffness Report CLINICAL INFORMATION: Acute onset of severe headache. CT HEAD WITHOUT INTRAVENOUS CONTRAST: Volume acquisition CT images are obtained from foramen magnum to vertex without intravenous contrast with axial, coronal and sagittal 2-D reconstructions. The ventricles and sulci are normal in size and configuration. No intra-axial mass lesion or mass-effect is seen. There is no evidence of acute intracranial hemorrhage or other focal abnormal intra-axial densities. The mastoid air cells and included paranasal sinuses are clear. The right frontal sinus is essentially nonaerated. IMPRESSION: No evidence of acute intracranial abnormality. Report Dictated on Final Dictated: 08/11/2020 7:50 pm Dictating Physician: MD RIOS HARLAN Signed Date and Time: 08/11/2020 7:56 pm Signed by: MD RIOS HARLAN Transcribed Date and Time: 08/11/2020 7:50 Normal [facility] Carbon Monoxide Panelon 02-2 Carboxy Hgb 1.5 %{total} Normal [facility] Comment on above: Result Comment: Inte rpret with caution, analysis delayed due to specimen transport. COHb REF RANGE: < 1.5 Nonsmokers 1.5-5.0 Smokers 5.0-9.0 Heavy Smokers Performed By: #### B MP3, TSH5, MG3, HEMDF, ESR #### [address] [address] #### CMXD #### [address] [address] Hemoglobin (Bld) [Mass/Vol] 15.9 g/dL Normal ScreenOnly [facility] Comment on above: Result Comment: Inte rpret with caution, analysis delayed due to specimen transport. Performed By: #### B MP3, TSH5, MG3, HEMDF, ESR #### [address] [address] #### CMXD #### [address] [address] Hemoglobin (Bld) [Mass/Vol] 55.8 %{total} Abnormal 94-100/Art [facility] Comment on above: Result Comment: Inte rpret with caution, analysis delayed due to specimen transport. Performed By: #### B MP3, TSH5, MG3, HEMDF, ESR #### [address] [address] #### CMXD #### [address] [place] [address] Methemoglobin 0.3 %{total} Normal 0.0-2.9 [facility] Comment on above: Result Comment: Inte rpret with caution, analysis delayed due to specimen transport. Performed By: #### B MP3, TSH5, MG3, HEMDF, ESR #### [facility] [address] [place] [address] #### CMXD #### [facility] [address] [place] [address] Specimen type Nom (Spec) Venous Normal [facility] Comment on above: Performed By: #### B MP3, TSH5, MG3, HEMDF, ESR #### [facility] [address] [place] [address] #### CMXD #### [address] [place] [address] Hemogram (CBC) w/Auto Diffon 08-11-2020 Absolute Baso # 0.1 10*3/uL 0 - 0.2 10*3/uL [facility] Work Phone: Absolute Neut # 3.9 10*3/uL 1.8 - 7 10*3/uL [facility] Work Phone: Basophils/100 WBC (Bld) 0.8 % 0 - 2 % [facility] Work Phone: Eosinophils (Bld) [#/Vol] 0.2 10*3/uL 0 - 0.5 10*3/uL [facility] Work Phone: Eosinophils/100 WBC (Bld) 3.2 % 1 - 6 % [facility] Work Phone: Erythrocyte distribution width (RBC) [Ratio] 12.4 % 11.5 - 14.5 % [facility] Work Phone: Granulocytes/100 WBC (Bld) 58.1 % 40 - 80 % [facility] Work Phone: Hematocrit (Bld) [Volume fraction] 43.1 % 40 - 52 % [facility] Work Phone: Hemoglobin (Bld) [Mass/Vol] 14.8 g/dL 13 - 18 g/dL [facility] Work Phone: Lymphocytes (Bld) [#/Vol] 2.0 10*3/uL 1 - 4.3 10*3/uL [facility] Work Phone: Lymphocytes/100 WBC (Bld) 30.5 % 20 - 40 % [facility] Work Phone: MCH (RBC) [Entitic mass] 29.3 pg 26 - 34 pg [facility] Work Phone: MCHC (RBC) [Mass/Vol] 34.3 % 32 - 36 % [facility] Work Phone: MCV (RBC) [Entitic vol] 85.4 fL 80 - 98 fL [facility] Work Phone: Monocytes (Bld) [#/Vol] 0.5 10*3/uL 0 - 0.8 10*3/uL [facility] Work Phone: Monocytes/100 WBC (Bld) 7.4 % 2 - 10 % [facility] Work Phone: Platelet mean volume (Bld) [Entitic vol] 7.8 fL 7.4 - 10.4 fL [facility] Work Phone: Platelets (Bld) [#/Vol] 249 10*3/uL 140 - 440 10*3/uL [facility] Work Phone: RBC (Bld) [#/Vol] 5.05 10*6/uL 4.4 - 5.9 10*6/uL [facility] Work Phone: WBC (Bld) [#/Vol] 6.6 10*3/uL 3.6 - 10.7 10*3/uL [facility] Work Phone: Test Performed by [facility], [address] [place] [address] [facility] Work Phone: Hemogram w/ Autodiffon 08-11 Abs Baso Cnt 0.1 10*3/uL Normal 0.0-0.2 [facility] Comment on above: Performed By: #### B MP3, TSH5, MG3, HEMDF, ESR #### [address] [address] #### CMXD #### [address] [address] Abs Neutrophile Cnt 3.9 10*3/uL Normal 1.8-7.0 [facility] Comment on above: Performed By: #### B MP3, TSH5, MG3, HEMDF, ESR #### [address] [address] #### CMXD #### [address] [address] Basophils/100 WBC (Bld) 0.8 % Normal 0.0-2.0 [facility] Comment on above: Performed By: #### B MP3, TSH5, MG3, HEMDF, ESR #### [address] [address] #### CMXD #### [address] [address] Eosinophils (Bld) [#/Vol] 0.2 10*3/uL Normal 0.0-0.5 [facility] Comment on above: Performed By: #### B MP3, TSH5, MG3, HEMDF, ESR #### [address] [address] #### CMXD #### [address] [address] Eosinophils/100 WBC (Bld) 3.2 % Normal 1.0-6.0 [facility] Comment on above: Performed By: #### B MP3, TSH5, MG3, HEMDF, ESR #### [address] [address] #### CMXD #### [address] Erythrocyte distribution width (RBC) [Ratio] 12.4 % Normal 11.5-14.5 [facility] Comment on above: Performed By: #### B MP3, TSH5, MG3, HEMDF, ESR #### [address] [address] #### CMXD #### [address] [place], [place] Granulocytes/100 WBC (Bld) 58.1 % Normal 40.0-80.0 [facility] Comment on above: Performed By: #### B MP3, TSH5, MG3, HEMDF, ESR #### [address] [address] #### CMXD #### [address] [place], [place] Hematocrit (Bld) [Volume fraction] 43.1 % Normal 40.0-52.0 [facility] Comment on above: Performed By: #### B MP3, TSH5, MG3, HEMDF, ESR #### [address] [address] #### CMXD #### [address] [place], [place] Hemoglobin (Bld) [Mass/Vol] 14.8 g/dL Normal 13.0-18.0 [facility] Comment on above: Performed By: #### B MP3, TSH5, MG3, HEMDF, ESR #### [address] [address] #### CMXD #### [address] Lymphocytes (Bld) [#/Vol] 2.0 10*3/uL Normal 1.0-4.3 [facility] Comment on above: Performed By: #### B MP3, TSH5, MG3, HEMDF, ESR #### [address] [address] #### CMXD #### [address] [address] Lymphocytes/100 WBC (Bld) 30.5 % Normal 20.0-40.0 [facility] Comment on above: Performed By: #### B MP3, TSH5, MG3, HEMDF, ESR #### [address] [address] #### CMXD #### [address] [address] MCH (RBC) [Entitic mass] 29.3 pg Normal 26.0-34.0 [facility] Comment on above: Performed By: #### B MP3, TSH5, MG3, HEMDF, ESR #### [address] [address] #### CMXD #### [address] MCHC (RBC) [Mass/Vol] 34.3 % Normal 32.0-36.0 [facility] Comment on above: Performed By: #### B MP3, TSH5, MG3, HEMDF, ESR #### [address] [address] #### CMXD #### [address] MCV (RBC) [Entitic vol] 85.4 fL Normal 80.0-98.0 [facility] Comment on above: Performed By: #### B MP3, TSH5, MG3, HEMDF, ESR #### [address] [address] #### CMXD #### [address] Monocytes (Bld) [#/Vol] 0.5 10*3/uL Normal 0.0-0.8 [facility] Comment on above: Performed By: #### B MP3, TSH5, MG3, HEMDF, ESR #### [address] [place] [address] #### CMXD #### [address] [address] Monocytes/100 WBC (Bld) 7.4 % Normal 2.0-10.0 [facility] Comment on above: Performed By: #### B MP3, TSH5, MG3, HEMDF, ESR #### [address] [address] #### CMXD #### [address] [place] [address] Platelet mean volume (Bld) [Entitic vol] 7.8 fL Normal 7.4-10.4 [facility] Comment on above: Performed By: #### B MP3, TSH5, MG3, HEMDF, ESR #### [address] [address] #### CMXD #### [address] [place] [address] Platelets (Bld) [#/Vol] 249 10*3/uL Normal 140-440 [facility] Comment on above: Performed By: #### B MP3, TSH5, MG3, HEMDF, ESR #### [address] [address] #### CMXD #### [address] [place] [address] RBC (Bld) [#/Vol] 5.05 10*6/uL Normal 4.40-5.90 [facility] Comment on above: Performed By: #### B MP3, TSH5, MG3, HEMDF, ESR #### [address] [address] #### CMXD #### [address] [address] WBC (Bld) [#/Vol] 6.6 10*3/uL Normal 3.6-10.7 [facility] Comment on above: Performed By: #### B MP3, TSH5, MG3, HEMDF, ESR #### [facility] [employer] [facility] [address] [place] [address] #### CMXD #### [facility] [employer] [facility] [address] [place] [address] Magnesiumon 08-11-2020 Magnesium [Mass/Vol] 2.1 mg/dL Normal 1.6-2.3 [facility] Comment on above: Performed By: #### B MP3, TSH5, MG3, HEMDF, ESR #### [facility] [employer] [facility] [address] [place] [address] #### CMXD #### [facility] [employer] [facility] [address] [place] [address] Magnesium [Mass/Vol] 2.1 mg/dL 1.6 - 2 .3 mg/dL [facility] Work Phone: Otheron 08-11-2020 Test Performed by [facility] [employer] [facility], [address] [place] [address] [facility] Work Phone: Sed Rateon 08-11-2020 Sed Rate 1 mm/h Normal 0-10 [facility] [employer] [facility] Comment on above: Performed By: #### B MP3, TSH5, MG3, HEMDF, ESR #### [facility] [employer] [facility] [address] [place] [address] #### CMXD #### [facility] [employer] [facility] [address] [place] [address] Sedimentation Rateon 021 Sed Rate 1 mm/h 0 - 10 mm/h [facility] Work Phone: Test Performed by [facility] [employer], [address] [place] [address] [facility] Work Phone: TSH without Reflexon 021 TSH Qn 2.142 u[IU]/mL 0.465 - 4.68 u[IU]/mL [facility] Work Phone: Test Performed by [facility] [employer] [facility], [address] [place] [address] [facility] Work Phone: Thyroid Stim. Hormoneon 07-23 Thyroid Stim. Hormone 2.142 u[IU]/mL Normal 0.465-4.680 [employer] Comment on above: Performed By: #### B MP3, TSH5, MG3, HEMDF, ESR #### [facility] [address] [place] [address] #### CMXD #### [facility] [address] [place] [address] CNPAntionette 08-07-2020 CNPN Telephone (AGSTOW) WARNER WILSON ([id number]) 2000 Date Time Provider Department 08/07/20 VETO POLANCO (MECCA, FITNESS/WELLNESS DIRECTOR)AGSTOW During your visit today, we recorded the following information about you: Antonietta Busby 08/07/2020 9:48 AM Signed ----- Message from Mireya Joseph sent at 08/07/2020 9:32 AM EST ----- Regarding: Medicine / Speular / Severe Headache Subject Line Format: Medicine / [Provider Name] / [Issue] Patient has been identified by name and Date of (Y/N): y Patient: Warner Wilson Date of : 2000 Provider for this encounter: Veot Polanco APRN.GERDA Reason for the call/escalation: Patient was experiencing what he stated as a sinus Infection, severe headache, eye pain, and lump on top right side of head. Tried to transfer to office but he was at work and didn't have time. Patient stated he would call back but would also like for the office to call him to schedule as well. Person calling if other than patient: na Return call to if other than patient: na Best contact number: [phone] Mireya Rosa August 07, 2020 9:33 AM Antonietta Busby 08/07/2020 9:49 AM Signed Wojciech Rice. Can you please call and schedule this pt for an OV or VV? Shelley Watts 08/07/2020 12:27 PM Signed I called patient and scheduled him for . I called and left message for patient as I did not realize I was scheduling for next week to see if he wanted to wait until then for Veto or see someone else sooner. 08/07/2020 Krystal Watts Allergies As of Date: 08/07/2020 (No Known Allergies) Date Reviewed: 07/31/2020 Reviewed by: Veto Ross (Glass Cutting Machine Feeder Fitter'S Assistant) GERDA Polanco - Fully Assessed Reason for Visit: Appointment [186] Prescriptions as of 08/07/2020 Sig: DOXYCYCLINE HYCLATE 100 MG CA* Take 1 capsule by mouth twice* CYCLOBENZAPRINE 10 MG TABLET Take 1 tablet by mouth twice * NAPROXEN 500 MG TABLET Take 1 tablet by mouth twice * Problem List As Of Date 08/07/2020 Noted Resolved Recurrent epistaxis [R04.0] 07/27/2017 Intrinsic allergic eczema [L20.84] 07/27/2017 Raynaud's phenomenon without gangrene [I73.00] 08/24/2017 Trapezius strain, left, initial encounter [S46.*08/24/2017 Carpal tunnel syndrome, bilateral [G56.03] 06/2020 Family history of colon cancer in mother [Z80.0] More... Obesity, Class I, BMI 30-34.9 [E66.9] 07/31/2020 Encounter Status:Closed by KRYSTAL WATTS on 08/07/20 [facility] CNOVon 07-31-2020 CNOV Office Visit (AGSTOW ) WARNER WILSON ([id number]) 2000 M Date Time Provider Department 07/31/20 8:20 AM VETO POLANCO (TOWER ERECTOR HELPER, GERDA)AGSTOW During your visit today, we recorded the following information about you: Temperature Pulse Blood pressure Weight 97.8 degrees 95/minute 128/82 100.2 kg Height 1.702 m Kianna Candelaria MA 07/31/2020 8:30 AM Signed Warner Wilson is a 20 year old male who presents for Physical JENNIFER Egan APRN.GERDA, GERDA 07/31/2020 9:04 AM Signed WELL VISIT PEDIATRIC MALE 18+YRS OLD SERVICE DATE: 07/31/2020 SERVICE TIME: 8:20 AM Warner is a 20 year old male who presents today for well exam. SUBJECTIVE CONCERNS: Headaches ED visit 07/22/20 at [place] for chest pain, tinnitus , had a negative work-up. He denies chest pain today HISTORY ACTIVE PROBLEM LIST Obesity, Class I, Bmi 30-34.9 - 07/31/2020 Family History of Colon Cancer in Mother Comment: age: 52 - needs screened at 40 Carpal Tunnel Syndrome, Bilateral - 06/21/2020 Raynaud's Phenomenon Without Gangrene - 08/24/2017 Trapezius Strain, Left, Initial Encounter - 08/24/2017 Recurrent Epistaxis - 07/27/2017 Intrinsic Allergic Eczema - 07/27/2017 PAST MEDICAL HISTORY Diagnosis Date - Carpal tunnel syndrome on both sides 06/2020 - Family history of colon cancer in mother age: 52 - needs screened at 40 - History of tympanostomy tube placement - Raynaud's syndrome PAST SURGICAL HISTORY Procedure Laterality Date - ADENOIDECTOMY HX 2008 - TYMPANOSTOMY LOCAL; UNILATERAL 2008 X 2 Allergies: ALLERGIES No Known Allergies Medications: doxycycline hyclate (VIBRAMYCIN) 100 mg capsule Take 1 capsule by mouth twice daily for 7 days. cyclobenzaprine (FLEXERIL) 10 mg tablet Take 1 tablet by mouth twice daily as needed. naproxen (NAPROSYN) 500 mg tablet Take 1 tablet by mouth twice daily as needed. FOR PAIN. TAKE WITH FOOD. Family History: FAMILY HISTORY Problem Relation Age of Onset - Asthma Sister - Mental illness Sister - Breast Cancer Other - other (DEMENTIA) Other - other (DIABETES MELLITUS) Other - other (HEART DISEASE) Other - other (HYPERLIPDEMIA) Other - Hypertension Other - other (MIGRAINE) Other - other (RHEUMATOID ARTHRITIS) Other - Skin Cancer Other - Stroke Other - other (THYROID DISORDER) Other - other (COLITIS) Other - Colon Cancer Mother 52 - Breast Cancer Mother 54 - Ulcerative Colitis Mother Social History Social History Narrative Not on file Smoking Exposure: Do you spend a significant amount of time with anyone who smokes? 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 Safety: Reviewed seat belts and smoke detectors Diet: -Eats 2 meals per day and 2 snacks per day Elimination: no concerns, normal size and consistency Dental: dental care current Sleep: -no sleep concerns -television in bedroom -computer in bedroom -9-10 hours of sleep Substance use: none Concerns: - headache. Daily headache for past few days. - multiple locations, goes to his neck. Reports neck tightness. Has some relief with Naprosynn He and his are - due in January Sexual History: Attraction: female Sexually Active: Yes Number of lifetime partners: 1 Contraception: none History of STI: No Hx of STI/HIV testing? No Any new partners since last testing? No Penile discharge: No Body image: satisfactory REVIEW OF SYSTEMS GENERAL: No fevers EYES: No vision concerns ENT: he was treated for sinusitis last month with Augmentin, headache did improve for a while, but is now returned : + left ear tinnitus RESPIRATORY: Negative for cough, wheezing or respiratory distress CARDIOVASCULAR: Negative for chest pain, syncope, lightheadness or heart racing SKIN: Negative for lesions, rash, and itching ENDOCRINE: No growth concerns OBJECTIVE Physical Exam: BP 128/82 Pulse 95 Temp 36.6 ?C (97.8 ?F) (Temporal) Ht 170.2 cm (5' 7) Wt 100.2 kg (221 lb) SpO2 96% BMI 34.61 kg/m? Blood pressure percentiles are not available for patients who are 18 years or older. Normalized BMI data available only for age 0 to 20 years. Last BMI: Wt: 90.7 kg (200 lb) BMI: 31.32 kg/(m2) Last 4 Encounter Wt Readings: Date: Wt: 07/31/2020 100.2 kg (221 lb) 04/04/2020 90.7 kg (200 lb) 10/14/2017 85.7 kg (189 lb) (89 %, Z= 1.25)* 08/24/2017 82.1 kg (181 lb) (85 %, Z= 1.05)* Last 4 Encounter Ht Readings: Date: Ht: 07/31/2020 170.2 cm (5' 7) 10/14/2017 170.2 cm (5' 7) (19 %, Z= -0.87)* 08/24/2017 170.2 cm (5' 7) (19 %, Z= -0.87)* 07/27/2017 167.6 cm (5' 6) (11 %, Z= -1.21)* Component Latest Ref Rng AND Units 04/04/2020 WBC 3.70 - 11.00 k/uL 4.65 RBC 4.20 - 6.00 m/uL 5.00 Hemoglobin 13.0 - 17.0 g/dL 14.7 Hematocrit 39.0 - 51.0 % 42.4 MCV 80.0 - 100.0 fL 84.8 MCH 26.0 - 34.0 pG 29.4 MCHC 30.5 - 36.0 g/dL 34.7 RDW-CV 11.5 - 15.0 % 11.5 Platelet Count 150 - 400 k/uL 218 MPV 9.0 - 12.7 fL 9.8 Neut% % 56.8 Abs Neut (ANC) 1.45 - 7.50 k/uL 2.63 Lymph% % 30.5 Abs Lymph 1.00 - 4.00 k/uL 1.42 Nash% % 9.2 Abs Nash <0.87 k/uL 0.43 Eosin% % 2.6 Abs Eosin <0.46 k/uL 0.12 Baso% % 0.9 Abs Baso <0.11 k/uL 0.04 Nucleated Reds 0 /100 WBC 0.0 Absolute nRBC <0.01 k/uL <0.01 Diff Type Auto Diff Protein, Total 6.3 - 8.0 g/dL 7.4 Albumin 3.9 - 4.9 g/dL 4.9 Calcium 8.5 - 10.2 mg/dL 9.7 Bilirubin, Total 0.2 - 1.3 mg/dL 0.3 Alkaline Phosphatase 38 - 113 U/L 99 AST 14 - 40 U/L 15 Glucose 74 - 99 mg/dL 84 BUN 9 - 24 mg/dL 11 Creatinine 0.73 - 1.22 mg/dL 0.83 Sodium 136 - 144 mmol/L 137 Potassium 3.7 - 5.1 mmol/L 4.3 Chloride 97 - 105 mmol/L 101 CO2 22 - 30 mmol/L 29 Anion Gap 9 - 18 mmol/L 7 (L) ALT 10 - 54 U/L 17 eGFR- >60 eGFR-All Other Races . >60 Color Yellow Yellow Clarity Clear Clear Glucose, Urine Negative mg/dL Negative Bilirubin, Urine Negative Negative Ketones, Urine Negative Negative Specific [place], Ur 1.005 - 1.030 1.010 Hemoglobin/Blood,Ur Negative Negative pH, Urine 5.0 - 8.0 7.0 Protein, Urine Negative Negative Urobilinogen 0.2 - 1.0 E.U./dL 0.2 Nitrites Negative Negative Leukest Negative Negative WBC, Urine 0 - 5 /HPF 0-5 RBC, Urine 0 - 3 /HPF 0-3 Cast 0 /LPF SEE COMMENT Magnesium 1.7 - 2.3 mg/dL 1.9 Lipase 16 - 61 U/L 18 General: Well developed, No acute distress, Obese Head: normocephalic Eyes: conjunctivae/corneas clear Ears: right ear serous otitis, bilateral scarring Nose: purulent rhinorrhea, mucosal erythema and mucosal edema Oropharynx: moist mucous membranes, no erythema or exudate Neck: Supple, no adenopathy; thyroid symmetric, normal size, no bruits Spine: Back symmetric, no curvature, but decreased ROM of cervical spine Resp: lungs clear to auscultation Heart: RRR , Normal S1 and S2. , No murmurs Chest: symmetric, no lesions Extremities: No clubbing, cyanosis, or edema., No deformities or skin discoloration. Good capillary refill. Full range of motion. Neuro: No focal deficits or abnormal findings present Skin: no rashes, lesions or jaundice ASSESSMENT AND PLAN: Encounter Diagnosis ICD-10-CM 1. Routine general medical examination at a health care facility Z00.00 2. Obesity, Class I, BMI 30-34.9 E66.9 3. Bacterial sinusitis J32.9 doxycycline hyclate (VIBRAMYCIN) 100 mg capsule B96.89 4. Acute cervical myofascial strain, initial encounter S16.1XXA cyclobenzaprine (FLEXERIL) 10 mg tablet naproxen (NAPROSYN) 500 mg tablet SIGNATURE: Kianna BariJENNIFER PATIENT NAME: Warner Wilson DATE: July 31, 2020 TIME: 8:26 AM Kianna JENNIFER Candelaria 07/31/2020 8:26 AM Addendum Neck and Upper Back Tension These exercises are designed to stretch the muscles that contribute to neck and upper back pain. For the best results do them every morning and evening. Slowly stretch in a relaxed, sustained way with your attention focused on the area being stretched. Do not bounce up and down or stretch to the point of pain. Go to the point of mild tension. Relax as you hold for 5-20 seconds. Start by sitting in a firm chair in a comfortable position. 1. Allow the head to move forward and to one side until you feel a stretch along the opposite side of the neck. Hold for 10 seconds repeat to other side. 2. Facing forward lean your head sideways towards your shoulder. Hold for 10 seconds, each side. 3. Sitting up straight, look slowly to the right until you feel a stretch. Hold for 10 seconds then repeat to the left. 4. Repeat steps 1-3. 5. Interlace fingers, then straighten arms pushing palms out and forward. Hold 20 seconds, relax, then repeat. 6. Bring interlaced fingers above your head. Hold 10 seconds, relax, repeat two more times. 7. Pull interlaced fingers to right and hold for 15 seconds. Repeat on left side. 8. Hold right elbow with left hand, then gently pull elbows behind the head. Hold 30 seconds, each arm. DO NOT OVERSTRETCH! 9. Gently pull right elbow towards your left shoulder as you look over your right shoulder. Hold 10 seconds and repeat on other side. 10. Interlace fingers behind your head and pull the shoulder blades together. Hold for 10 seconds, relax, repeat two more times. 11. Lean forward in the chair and hold for 45-[address] both hands, shoulder width apart on top of a tall piece of furniture or counter. Let your upper body drop towards the floor as you keep your knees soft, slightly bent. 13. Lean your head sideways towards your left shoulder as your left hand pulls the right arm down and across, behind your back. Hold for 10 seconds and repeat on other side. . Referring Provider: SELF [[id number]] Allergies As of Date: 07/31/2020 (No Known Allergies) Date Reviewed: 07/31/2020 Reviewed by: Veto Ross (Mecca Adames) GERDA Polanco - Fully Assessed Reason for Visit: Physical [83] Primary Visit Diagnosis:Routine general medical examination at a health care facility [Z00.00] Other Visit Diagnoses:Obesity, Class I, BMI 30-34.9 [E66.9] Bacterial sinusitis [J32.9, B96.89] Acute cervical myofascial strain, initial encounter [S16.1XXA] Order(s):doxycycline hyclate (VIBRAMYCIN) 100 mg capsuleTake 1 capsule by mouth twice daily for 7 days.Disp: 14 capsuleRfl: 0 cyclobenzaprine (FLEXERIL) 10 mg tabletTake 1 tablet by mouth twice daily as needed.Disp: 45 tabletRfl: 0 naproxen (NAPROSYN) 500 mg tabletTake 1 tablet by mouth twice daily as needed. FOR PAIN. TAKE WITH FOOD.Disp: 45 tabletRfl: 0 Prescriptions as of 07/31/2020 Sig: DOXYCYCLINE HYCLATE 100 MG CA* Take 1 capsule by mouth twice* CYCLOBENZAPRINE 10 MG TABLET Take 1 tablet by mouth twice * NAPROXEN 500 MG TABLET Take 1 tablet by mouth twice * Problem List As Of Date 07/31/2020 Noted Resolved Recurrent epistaxis [R04.0] 07/27/2017 Intrinsic allergic eczema [L20.84] 07/27/2017 Raynaud's phenomenon without gangrene [I73.00] 08/24/2017 Trapezius strain, left, initial encounter [S46.*08/24/2017 Carpal tunnel syndrome, bilateral [G56.03] 06/2020 Family history of colon cancer in mother [Z80.0] More... Obesity, Class I, BMI 30-34.9 [E66.9] 07/31/2020 Other instructions from your clinician: Neck and Upper Back Tension These exercises are designed to stretch the muscles that contribute to neck and upper back pain. For the best results do them every morning and evening. Slowly stretch in a relaxed, sustained way with your attention focused on the area being stretched. Do not bounce up and down or stretch to the point of pain. Go to the point of mild tension. Relax as you hold for 5-20 seconds. Start by sitting in a firm chair in a comfortable position. 1. Allow the head to move forward and to one side until you feel a stretch along the opposite side of the neck. Hold for 10 seconds repeat to other side. 2. Facing forward lean your head sideways towards your shoulder. Hold for 10 seconds, each side. 3. Sitting up straight, look slowly to the right until you feel a stretch. Hold for 10 seconds then repeat to the left. 4. Repeat steps 1-3. 5. Interlace fingers, then straighten arms pushing palms out and forward. Hold 20 seconds, relax, then repeat. 6. Bring interlaced fingers above your head. Hold 10 seconds, relax, repeat two more times. 7. Pull interlaced fingers to right and hold for 15 seconds. Repeat on left side. 8. Hold right elbow with left hand, then gently pull elbows behind the head. Hold 30 seconds, each arm. DO NOT OVERSTRETCH! 9. Gently pull right elbow towards your left shoulder as you look over your right shoulder. Hold 10 seconds and repeat on other side. 10. Interlace fingers behind your head and pull the shoulder blades together. Hold for 10 seconds, relax, repeat two more times. 11. Lean forward in the chair and hold for 45-[address] both hands, shoulder width apart on top of a tall piece of furniture or counter. Let your upper body drop towards the floor as you keep your knees soft, slightly bent. 13. Lean your head sideways towards your left shoulder as your left hand pulls the right arm down and across, behind your back. Hold for 10 seconds and repeat on other side. . Visit Notes: >> Kianna Ayala Jul 31, 2020 8:25 AM Status: Signed Warner Wilson is a 20 year old male who presents for Physical Kianna Candelaria MA Prescriptions ordered this encounter Disp Refills Start End DOXYCYCLINE HYCLATE 100 MG CAPSULE 14 c* 0 07/31/2020 08/07/2020 Route: ORAL Sig: Take 1 capsule by mouth twice daily for 7 days. CYCLOBENZAPRINE 10 MG TABLET 45 t* 0 07/31/2020 Route: ORAL Sig: Take 1 tablet by mouth twice daily as needed. NAPROXEN 500 MG TABLET 45 t* 0 07/31/2020 Route: ORAL Sig: Take 1 tablet by mouth twice daily as needed. FOR PAIN. TAKE WITH FOOD. Medications Discontinued During This Encounter Prescriptions - naproxen (NAPROSYN) 500 mg tablet (Discontinued) Reported on 07/31/2020 Disposition: Return for Follow-up in one year for routine physical. Follow-up and Disposition History Recorded Encounter Status:Closed by VETO POLANCO CNP on 07/31/20 [facility] PROGRESSon 07-31-2020 PROGRESS HNO ID: [id number] Author: Veto Ross (Mecca Adames) GERDA Polanco Service: ? Author Type: Nurse Practitioner Type: Progress Notes Filed: 07/31/2020 9:04 AM Note Text: WELL VISIT PEDIATRIC MALE 18+YRS OLD SERVICE DATE: 07/31/2020 SERVICE TIME: 8:20 AM Warner is a 20 year old male who presents today for well exam. SUBJECTIVE CONCERNS: Headaches ED visit 07/22/20 at [place] for chest pain, tinnitus , had a negative work-up. He denies chest pain today HISTORY ACTIVE PROBLEM LIST Obesity, Class I, Bmi 30-34.9 - 07/31/2020 Family History of Colon Cancer in Mother Comment: age: 52 - needs screened at 40 Carpal Tunnel Syndrome, Bilateral - 06/21/2020 Raynaud's Phenomenon Without Gangrene - 08/24/2017 Trapezius Strain, Left, Initial Encounter - 08/24/2017 Recurrent Epistaxis - 07/27/2017 Intrinsic Allergic Eczema - 07/27/2017 PAST MEDICAL HISTORY Diagnosis Date - Carpal tunnel syndrome on both sides 06/2020 - Family history of colon cancer in mother age: 52 - needs screened at 40 - History of tympanostomy tube placement - Raynaud's syndrome PAST SURGICAL HISTORY Procedure Laterality Date - ADENOIDECTOMY HX 2008 - TYMPANOSTOMY LOCAL; UNILATERAL 2009 X 2 Allergies: ALLERGIES No Known Allergies Medications: doxycycline hyclate (VIBRAMYCIN) 100 mg capsule Take 1 capsule by mouth twice daily for 7 days. cyclobenzaprine (FLEXERIL) 10 mg tablet Take 1 tablet by mouth twice daily as needed. naproxen (NAPROSYN) 500 mg tablet Take 1 tablet by mouth twice daily as needed. FOR PAIN. TAKE WITH FOOD. Family History: FAMILY HISTORY Problem Relation Age of Onset - Asthma Sister - Mental illness Sister - Breast Cancer Other - other (DEMENTIA) Other - other (DIABETES MELLITUS) Other - other (HEART DISEASE) Other - other (HYPERLIPDEMIA) Other - Hypertension Other - other (MIGRAINE) Other - other (RHEUMATOID ARTHRITIS) Other - Skin Cancer Other - Stroke Other - other (THYROID DISORDER) Other - other (COLITIS) Other - Colon Cancer Mother 52 - Breast Cancer Mother 54 - Ulcerative Colitis Mother Social History Social History Narrative Not on file Smoking Exposure: Do you spend a significant amount of time with anyone who smokes? 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 Safety: Reviewed seat belts and smoke detectors Diet: -Eats 2 meals per day and 2 snacks per day Elimination: no concerns, normal size and consistency Dental: dental care current Sleep: -no sleep concerns -television in bedroom -computer in bedroom -9-10 hours of sleep Substance use: none Concerns: - headache. Daily headache for past few days. - multiple locations, goes to his neck. Reports neck tightness. Has some relief with Naprosynn He and his are - due in January Sexual History: Attraction: female Sexually Active: Yes Number of lifetime partners: 1 Contraception: none History of STI: No Hx of STI/HIV testing? No Any new partners since last testing? No Penile discharge: No Body image: satisfactory REVIEW OF SYSTEMS GENERAL: No fevers EYES: No vision concerns ENT: he was treated for sinusitis last month with Augmentin, headache did improve for a while, but is now returned : + left ear tinnitus RESPIRATORY: Negative for cough, wheezing or respiratory distress CARDIOVASCULAR: Negative for chest pain, syncope, lightheadness or heart racing SKIN: Negative for lesions, rash, and itching ENDOCRINE: No growth concerns OBJECTIVE Physical Exam: BP 128/82 Pulse 95 Temp 36.6 ?C (97.8 ?F) (Temporal) Ht 170.2 cm (5' 7) Wt 100.2 kg (221 lb) SpO2 96% BMI 34.61 kg/m? Blood pressure percentiles are not available for patients who are 18 years or older. Normalized BMI data available only for age 0 to 20 years. Last BMI: Wt: 90.7 kg (200 lb) BMI: 31.32 kg/(m2) Last 4 Encounter Wt Readings: Date: Wt: 07/31/2020 100.2 kg (221 lb) 04/04/2020 90.7 kg (200 lb) 10/14/2017 85.7 kg (189 lb) (89 %, Z= 1.25)* 08/24/2017 82.1 kg (181 lb) (85 %, Z= 1.05)* Last 4 Encounter Ht Readings: Date: Ht: 07/31/2020 170.2 cm (5' 7) 10/14/2017 170.2 cm (5' 7) (19 %, Z= -0.87)* 08/24/2017 170.2 cm (5' 7) (19 %, Z= -0.87)* 07/27/2017 167.6 cm (5' 6) (11 %, Z= -1.21)* Component Latest Ref Rng AND Units 04/04/2020 WBC 3.70 - 11.00 k/uL 4.65 RBC 4.20 - 6.00 m/uL 5.00 Hemoglobin 13.0 - 17.0 g/dL 14.7 Hematocrit 39.0 - 51.0 % 42.4 MCV 80.0 - 100.0 fL 84.8 MCH 26.0 - 34.0 pG 29.4 MCHC 30.5 - 36.0 g/dL 34.7 RDW-CV 11.5 - 15.0 % 11.5 Platelet Count 150 - 400 k/uL 218 MPV 9.0 - 12.7 fL 9.8 Neut% % 56.8 Abs Neut (ANC) 1.45 - 7.50 k/uL 2.63 Lymph% % 30.5 Abs Lymph 1.00 - 4.00 k/uL 1.42 Nash% % 9.2 Abs Nash <0.87 k/uL 0.43 Eosin% % 2.6 Abs Eosin <0.46 k/uL 0.12 Baso% % 0.9 Abs Baso <0.11 k/uL 0.04 Nucleated Reds 0 /100 WBC 0.0 Absolute nRBC <0.01 k/uL <0.01 Diff Type Auto Diff Protein, Total 6.3 - 8.0 g/dL 7.4 Albumin 3.9 - 4.9 g/dL 4.9 Calcium 8.5 - 10.2 mg/dL 9.7 Bilirubin, Total 0.2 - 1.3 mg/dL 0.3 Alkaline Phosphatase 38 - 113 U/L 99 AST 14 - 40 U/L 15 Glucose 74 - 99 mg/dL 84 BUN 9 - 24 mg/dL 11 Creatinine 0.73 - 1.22 mg/dL 0.83 Sodium 136 - 144 mmol/L 137 Potassium 3.7 - 5.1 mmol/L 4.3 Chloride 97 - 105 mmol/L 101 CO2 22 - 30 mmol/L 29 Anion Gap 9 - 18 mmol/L 7 (L) ALT 10 - 54 U/L 17 eGFR- >60 eGFR-All Other Races . >60 Color Yellow Yellow Clarity Clear Clear Glucose, Urine Negative mg/dL Negative Bilirubin, Urine Negative Negative Ketones, Urine Negative Negative Specific [place], Ur 1.005 - 1.030 1.010 Hemoglobin/Blood,Ur Negative Negative pH, Urine 5.0 - 8.0 7.0 Protein, Urine Negative Negative Urobilinogen 0.2 - 1.0 E.U./dL 0.2 Nitrites Negative Negative Leukest Negative Negative WBC, Urine 0 - 5 /HPF 0-5 RBC, Urine 0 - 3 /HPF 0-3 Cast 0 /LPF SEE COMMENT Magnesium 1.7 - 2.3 mg/dL 1.9 Lipase 16 - 61 U/L 18 General: Well developed, No acute distress, Obese Head: normocephalic Eyes: conjunctivae/corneas clear Ears: right ear serous otitis, bilateral scarring Nose: purulent rhinorrhea, mucosal erythema and mucosal edema Oropharynx: moist mucous membranes, no erythema or exudate Neck: Supple, no adenopathy; thyroid symmetric, normal size, no bruits Spine: Back symmetric, no curvature, but decreased ROM of cervical spine Resp: lungs clear to auscultation Heart: RRR , Normal S1 and S2. , No murmurs Chest: symmetric, no lesions Extremities: No clubbing, cyanosis, or edema., No deformities or skin discoloration. Good capillary refill. Full range of motion. Neuro: No focal deficits or abnormal findings present Skin: no rashes, lesions or jaundice ASSESSMENT AND PLAN: Encounter Diagnosis ICD-10-CM 1. Routine general medical examination at a health care facility Z00.00 2. Obesity, Class I, BMI 30-34.9 E66.9 3. Bacterial sinusitis J32.9 doxycycline hyclate (VIBRAMYCIN) 100 mg capsule B96.89 4. Acute cervical myofascial strain, initial encounter S16.1XXA cyclobenzaprine (FLEXERIL) 10 mg tablet naproxen (NAPROSYN) 500 mg tablet SIGNATURE: Kianna Candelaria MA PATIENT NAME: Warner Wilson DATE: July 31, 2020 TIME: 8:26 AM Normal [facility] PROGRESSon 06-26-2020 PROGRESS HNO ID: [id number] Author: Veto Ross (Glass Cutting Machine Feeder Gerda) GERDA Polanco Service: ? Author Type: Nurse Practitioner Type: Progress Notes Filed: 06/26/2020 7:40 AM Note Text: VIRTUAL VISIT PROGRESS NOTE This is a virtual visit using non-HIPAA compliant video platform. It required patient-provider interaction for the medical decision making as documented below. Warner Wilson is a 20 year old male seen for re-establish care and multiple concerns. Last seen in 2018 for Raynaud's and was treated with fluoxetine 1. Bilateral hand numbness. Intermittent. Worse during th night, wakes patient up from sleep. He states that he is unable to go back to sleep, due to pain. Describes entire hand numbness. Is able to work, only intermittent symptoms during the day 2. Headache started last week. Behind left eye. Describes as a constant pressure. He states that if he looks somewhere too quickly , he has pain. He only wears glasses when he reads. He has an astigmatism. Denies any visual changes. He denies fever. + nasal congestion - hs only. + constant post-nasal drip + ear pressure, jerad in the left ear. 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 Fam Hx: - mother diagnosed with colon cancer at age 52 and breast cancer at age 54 HISTORY REVIEWED (electronic chart updated): PAST MEDICAL HISTORY Diagnosis Date - Carpal tunnel syndrome on both sides 06/2020 - Family history of colon cancer in mother age: 52 - needs screened at 40 - Raynaud's syndrome PAST SURGICAL HISTORY Procedure Laterality Date - ADENOIDECTOMY HX 2008 - TYMPANOSTOMY LOCAL; UNILATERAL 2008 X 2 FAMILY HISTORY Problem Relation Age of Onset - Asthma Sister - Mental illness Sister - Breast Cancer Other - other (DEMENTIA) Other - other (DIABETES MELLITUS) Other - other (HEART DISEASE) Other - other (HYPERLIPDEMIA) Other - Hypertension Other - other (MIGRAINE) Other - other (RHEUMATOID ARTHRITIS) Other - Skin Cancer Other - Stroke Other - other (THYROID DISORDER) Other - other (COLITIS) Other - Colon Cancer Mother 52 - Breast Cancer Mother 54 - Ulcerative Colitis Mother Social History Tobacco Use - Smoking status: Never Smoker - Smokeless tobacco: Never Used Substance Use Topics - Alcohol use: No - Drug use: Not on file Current Outpatient Medications Medication Sig - amoxicillin-clavulanic acid (AUGMENTIN) 875-125 mg per tablet Take 1 tablet by mouth every 12 hours for 7 days. - naproxen (NAPROSYN) 500 mg tablet Take 1 tablet by mouth twice daily with meals. FOR PAIN. TAKE WITH FOOD. No current facility-administered medications for this visit. ALLERGIES No Known Allergies REVIEW OF SYSTEMS: GENERAL: no fever HEENT: see HPI RESPIRATORY: no cough NEURO: admits to paresthesia in the bilateral hand PHYSICAL EXAMINATION: VIDEO EXAM: (if completed, performed via video enabled technology) GENERAL: alert and appropriate, in no distress, well-hydrated, well nourished and happy, smiling, interactive SKIN: no rash noted HEAD: normocephalic, no abnormality or lesion noted EYES: no injection and visual acuity is grossly normal EARS: external ears normal, no mastoid tenderness NOSE: external nose normal without rhinorrhea and + left maxillary sinus tenderness to palpation OROPHARYNX: moist mucus membranes, no tonsillar hypertrophy/exudate, uvula midline and pharynx non-erythematous, lips, teeth and gums are without obvious lesion RESPIRATORY: breathing non-labored and no grunting/flaring/retrac tions EXTREMITIES: moves bilateral hands/ arms without deficit NEUROLOGIC: + Phalen's manuever ASSESSMENT: (G56.03) Carpal tunnel syndrome, bilateral (primary encounter diagnosis) (J01.80) Acute non-recurrent sinusitis of other sinus (Z80.0) Family history of colon cancer in mother PLAN: 1. Discussed diagnosis with pt. Start Naprosyn and cock-up splints at hs. If no improvement with conservative measures, he will contact office for referral to hand specialist 2. Start Augmentin and Naprosyn for pain. If headache does not improve after this, he will contact office for a referral to opthalmology 3.he will need screening colonoscopy at age 39 There are no Patient Instructions on file for this visit. Veto Polanco, TOWER ERECTOR HELPER.FITNESS/WELLNESS DIRECTOR Normal [facility] CBC and Differentialon 04-04 Abs Baso 0.04 k/uL Normal <0.11 [facility] Abs Nash 0.43 k/uL Normal <0.87 [facility] Abs Neut 2.63 k/uL Normal 1.45-7.50 [facility] Absolute nRBC <0.01 [facility] WBC (Bld) 0.9 % Normal [facility] DTYPE Auto Diff Normal [facility] Eosinophils (Bld) [#/Vol] 0.12 10*3/uL Normal <0.46 [facility] Eosinophils/100 WBC (Bld) 2.6 % Normal [facility] Erythrocyte distribution width (RBC) [Ratio] 11.5 % Normal 11.5-15.0 [facility] Hematocrit (Bld) [Volume fraction] 42.4 % Normal 39.0-51.0 [facility] Hemoglobin (Bld) [Mass/Vol] 14.7 g/dL Normal 13.0-17.0 [facility] Lymphocytes (Bld) [#/Vol] 1.42 10*3/uL Normal 1.00-4.00 [facility] Lymphocytes/100 WBC (Bld) 30.5 % Normal [facility] MCH (RBC) [Entitic mass] 29.4 pG Normal 26.0-34.0 [facility] MCHC (RBC) [Mass/Vol] 34.7 g/dL Normal 30.5-36.0 [facility] MCV (RBC) [Entitic vol] 84.8 fL Normal 80.0-100.0 [facility] Monocytes/100 WBC (Bld) 9.2 % Normal [facility] Neutrophils/100 WBC (Bld) 56.8 % Normal [facility] NRBCs 0.0 /100 WBC Normal 0 [facility] Platelet mean volume (Bld) [Entitic vol] 9.8 fL Normal 9.0-12.7 [facility] l Platelets (Bld) [#/Vol] 218 10*3/uL Normal 150-400 [facility] RBC (Bld) [#/Vol] 5.00 10*6/uL Normal 4.20-6.00 [facility] WBC (Bld) [#/Vol] 4.65 10*3/uL Normal 3.70-11.[address] [facility] [address] ABD/PEL W IVCONon 020 CT ABD/PEL W IVCON * * *Final Report* * * DATE OF EXAM: Apr 04 2020 1:02PM [facility] 0530 - CT ABD/PEL W IVCON / PROCEDURE REASON: Abd pain, diverticulitis suspected * * * * Physician Interpretation * * * * EXAMINATION: CT ABDOMEN AND PELVIS WITH IV CONTRAST CLINICAL HISTORY: Abd pain, diverticulitis suspected TECHNIQUE: CT of the abdomen and pelvis was performed using standard technique, scanning from just above the dome of the diaphragm to the symphysis pubis. MQ: CTAP_3 Contrast: IV: 150 ml of Omnipaque 300 : ml of CT Radiation dose: Integrated Dose-length product (DLP) for this visit = 902 mGy*cm. CT Dose Reduction Employed: Automated exposure control (AEC) COMPARISON: None. RESULT: Liver: No mass. Biliary: No bile duct dilation. Gallbladder is unremarkable. Spleen: No mass. No splenomegaly. Pancreas: No mass or duct dilation. Adrenals: No mass. Kidneys: No mass, calculus or hydronephrosis. GI tract: Normal appendix. Mild wall thickening mid descending colon Lymph nodes: No abdominal or pelvic lymphadenopathy. Mesentery/Peritoneum: No ascites or mass. Retroperitoneum: No mass. Vasculature: The celiac axis and SMA are patent. The portal vein and branches, splenic vein, SMV, and hepatic veins are patent. Pelvis: No mass, ascites or fluid collection. Bones/Soft Tissues: No significant finding. Lower thorax: Unremarkable. Accounting Officer (topogram) images: No significant findings. IMPRESSION: Possible mid left colitis Mixer Operator Tablets: PSCB Transcribe Date/Time: Apr 04 2020 1:14P Dictated by : ARELIS TEE MD This examination was interpreted and the report reviewed and electronically signed by: ARELIS TEE MD on Apr 04 2020 1:25PM EST [id number] Normal [facility] Comp Metabolic Panelon 04-04 Albumin [Mass/Vol] 4.9 g/dL Normal 3.9-4.9 [facility] ospital ALP [Catalytic activity/Vol] 99 U/L Normal 38-113 [facility] ALT [Catalytic activity/Vol] 17 U/L Normal 10-54 [facility] Anion gap [Moles/Vol] 7 mmol/L Low 9-18 [facility] AST [Catalytic activity/Vol] 15 U/L Normal 14-40 [facility] Bilirubin [Mass/Vol] 0.3 mg/dL Normal 0.2-1.3 [facility] Calcium [Mass/Vol] 9.7 mg/dL Normal 8.5-10.2 [facility] ospital Chloride [Moles/Vol] 101 mmol/L Normal 97-105 [facility] CO2 [Moles/Vol] 29 mmol/L Normal 22-30 [facility] ital Creatinine [Mass/Vol] 0.83 mg/dL Normal 0.73-1.22 [facility] eGFR- Amer. >60 Normal [facility] ospital GFR/1.73 sq M predicted among non-blacks MDRD (S/P/Bld) [Vol rate/Area] mL/min/{1.73_m2} Normal [facility] Comment on above: Result Comment: eGFR (Estimated GFR) Units of measure: mL/min/1.73 meters squared eGFR is derived from the reexpressed MDRD Study equation using the following parameters: serum creatinine, age, gender and race. The creatinine assay has been calibrated to be traceable to IDMS. An eGFR <60 mL/min/1.73m2 for >3 months is consistent with chronic kidney disease. Refer to KDOQI guidelines for clinical interpretation. In patients with unstable renal function, e.g. those with acute kidney injury, the eGFR may not accurately reflect actual GFR. Glucose [Mass/Vol] 84 mg/dL Normal 74-99 [facility] Comment on above: Result Comment: The [place] Diabetes Association (ADA) provides guidance for cutoff values for fasting glucose and random glucose. The ADA defines fasting as no caloric intake for at least 8 hours. Fasting plasma glucose results between 100 to 125 mg/dL indicate increased risk for diabetes (prediabetes). Fasting plasma glucose results greater than or equal to 126 mg/dL meet the criteria for diagnosis of diabetes. In the absence of unequivocal hyperglycemia, results should be confirmed by repeat testing. In a patient with classic symptoms of hyperglycemia or hyperglycemic crisis, random plasma glucose results greater than or equal to 200 mg/dL meet the criteria for diagnosis of diabetes. Reference: Standards of Medical Care in Diabetes 2016, [place] Diabetes Association. Diabetes Care. 2016.39(Suppl 1). Potassium [Moles/Vol] 4.3 mmol/L Normal 3.7-5.1 [facility] Protein [Mass/Vol] 7.4 g/dL Normal 6.3-8.0 [facility] Sodium [Moles/Vol] 137 mmol/L Normal 136-144 [facility] Urea nitrogen [Mass/Vol] 11 mg/dL Normal 9-24 [facility] ED NOTEon 04-04-2020 ED NOTE HNO ID: [id number] Author: Maribel Real) PAULETTE Ross Service: ? Author Type: Registered Nurse Type: ED Notes Filed: 04/04/2020 3:22 PM Note Text: Discharge Note The patient was discharged home, the patients skin is warm and dry, and breathing is regular and unlabored. Discharge and follow up instructions given, Pt stable. The patient verbalized an understanding of discharge instructions provided, and verbalized an understanding of the medications prescribed. The patient was instructed to return to the ED if symptoms worsen. Pt has no further questions and/or concerns at this time. [facility] ED NOTE HNO ID: [id number] Author: Maribel Real) PAULETTE Ross Service: ? Author Type: Registered Nurse Type: ED Notes Filed: 04/04/2020 2:25 PM Note Text: The P.A is at bedside. [facility] ED NOTE HNO ID: [id number] Author: Maribel Real) PAULETTE Ross Service: ? Author Type: Registered Nurse Type: ED Notes Filed: 04/04/2020 1:15 PM Note Text: Urine was sent. [facility] ED NOTE HNO ID: [id number] Author: Maribel Real) PAULETTE Ross Service: ? Author Type: Registered Nurse Type: ED Notes Filed: 04/04/2020 12:24 PM Note Text: Urine was sent. [facility] ED NOTE HNO ID: [id number] Author: Maribel Real) PAULETTE Ross Service: ? Author Type: Registered Nurse Type: ED Notes Filed: 04/04/2020 11:50 AM Note Text: The P.A is at bedside. [facility] ED NOTE HNO ID: [id number] Author: Nitesh Cates (Medic) Service: ? Author Type: Commercial Loan Reviewer and Integration Director Type: ED Notes Filed: 04/04/2020 11:42 AM Note Text: Pt to ed c/o RLQ abd pain that started this morning, states pain worse with movement, denies any n/v/d. [facility] ED PROV NOTEon 04-04-2020 ED PROV NOTE HNO ID: [id number] Author: Felipe Pillai (Pa) Service: Emergency Medicine Author Type: Physician Metal Casket Maker Type: ED Provider Notes Filed: 04/05/2020 11:28 AM Note Text: ED Provider Note Patient Name: Warner Wilson SERVICE DATE: 04/04/20 History No chief complaint on file. HPI A 20 yo male with a PMH of Raynaud's and allergic eczema presents to the ED with abdominal pain. Patient reports that yesterday he started having abdominal pain in his lower abdomen. States that it feels like it is more on the right side now. Describes the pain as sharp. 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 Currently rates the pain a 6 out of 10 in severity. Has not had any nausea or vomiting. He has had a bit of a decreased appetite and had one episode of diarrhea yesterday. Not had any blood in stool. No recent travel. He has had some slight increased urinary frequency but no dysuria. Denies any hematuria. The pain is constant. He has not had any fevers or chills. Denies any other acute complaints. No past medical history on file. PAST SURGICAL HISTORY Procedure Laterality Date - ADENOIDECTOMY HX 2008 - TYMPANOSTOMY LOCAL; UNILATERAL 2008 X 2 FAMILY HISTORY Problem Relation Age of Onset - Asthma Sister - Breast Cancer Unknown - other (DEMENTIA [Other]) Unknown - other (DIABETES MELLITUS [Other]) Unknown - other (HEART DISEASE [Other]) Unknown - other (HYPERLIPDEMIA [Other]) Unknown - Hypertension Unknown - other (MIGRAINE [Other]) Unknown - other (RHEUMATOID ARTHRITIS [Other]) Unknown - Skin Cancer Unknown - Stroke Unknown - other (THYROID DISORDER [Other]) Unknown - other (COLITIS [Other]) Unknown Social History Tobacco Use - Smoking status: Never Smoker - Smokeless tobacco: Never Used Substance and Sexual Activity - Alcohol use: No - Drug use: Not on file - Sexual activity: Not on file ALLERGIES No Known Allergies Review of Systems Constitutional: Negative for chills and fever. Gastrointestinal: Positive for abdominal pain and diarrhea (1 episode). Negative for nausea and vomiting. Genitourinary: Positive for frequency. Negative for dysuria and flank pain. All other systems reviewed and are negative. Physical Exam There were no vitals taken for this visit. Physical Exam Vitals signs and nursing note reviewed. Constitutional: General: He is not in acute distress. Appearance: He is well-developed. He is not ill-appearing or diaphoretic. Comments: Well appearing male resting comfortably and in no severe distress. HENT: Head: Normocephalic and atraumatic. Eyes: Pupils: Pupils are equal, round, and reactive to light. Neck: Musculoskeletal: Normal range of motion. Cardiovascular: Rate and Rhythm: Normal rate and regular rhythm. Heart sounds: Normal heart sounds. Pulmonary: Effort: Pulmonary effort is normal. No respiratory distress. Breath sounds: Normal breath sounds. No stridor. No wheezing, rhonchi or rales. Abdominal: General: Bowel sounds are normal. There is no distension. Palpations: Abdomen is soft. There is no mass. Tenderness: There is abdominal tenderness. There is no right CVA tenderness, left CVA tenderness, guarding or rebound. Hernia: No hernia is present. Comments: Tenderness noted over the periumbilical region and over the right lower quadrant. No guarding. Abdomen is nondistended. Skin: General: Skin is warm and dry. Capillary Refill: Capillary refill takes less than 2 seconds. Neurological: Mental Status: He is alert. Mental status is at baseline. Psychiatric: Mood and Affect: Mood normal. Diagnostic Testing ED Labs Ordered and Reviewed - No data to display Procedures ED Course / Clinical Impression Clinical Impressions as of Apr 05 1119 Colitis Lower abdominal pain MDM / Disposition / Plan MDM Warner Wilson is a 20 yo male with a PMH of Raynaud's and allergic eczema who presented to the ED with abdominal pain X 1 day. He is afebrile, HD stable, and in no severe distress. UA did not demonstrate any signs of infection. CBC demonstrated a stable condition of leukocytosis or leukopenia. CMP did not demonstrate any significant electrolyte or metabolic derangements. Mg was WNL. Lipase was WNL. Therefore, low concern for pancreatitis at this time. CT abdomen/pelvis demonstrated signs concerning for possible colitis and appendix appeared unremarkable. Patient given the above medications for his pain experienced improvement. He was able to tolerate oral intake during his stay in the emergency department. Therefore, we will treat for possible colitis with Omnicef and Flagyl. Advised not to drink any alcohol with this medication. Given that he has no leukocytosis, is afebrile, appendix is unremarkable on imaging, and he is able to tolerate oral intake, I have low suspicion for acute appendicitis at this time. However, patient was counseled on supportive care and advised to follow-up with PCP in the next 1 to 2 days to ensure improvement of his symptoms. Signs and symptoms were not consistent with AAA, perforated viscus, aortic dissection, acute cholecystitis, acute cholangitis, mesenteric ischemia, testicular torsion, or pancreatitis. Thus, patient was counseled about a bowel easy diet and given strict return precautions I discussed signs and symptoms and return to the ED. Patient and spouse voiced understanding and agreement the above plan. I answered all patient questions and there were no apparent barriers to communication present. The patient was DISCHARGED: Counseled patient and spouse regarding lab results AND radiology results AND suspected diagnosis AND need for follow-up. Discharged home with verbal and written instructions. They were instructed to return as needed for persistent or worsening symptoms or any new concerns. Condition at time of disposition: improved and stable SIGNATURE: DOUGIE Mcwilliams (Pa) 04/05/20 1128 Normal [facility] Lipaseon 04-04-2020 Lipase [Catalytic activity/Vol] 18 U/L Normal 16-61 [facility] Magnesiumon 04-04-2020 Magnesium [Mass/Vol] 1.9 mg/dL Normal 1.7-2.3 [facility] PROGRESSon 04-04-2020 PROGRESS HNO ID: [id number] Author: MAVERICK Pierre Service: Radiology Author Type: Clinical Integration Director Type: Progress Notes Filed: 04/04/2020 12:57 PM Note Text: Radiology Service Progress Note DATE OF SERVICE: April 04, 2020 TIME: 12:56 PM PATIENT IDENTITY VERIFICATION COMPLETED USING TWO (2) STANDARD IDENTIFIERS: Name and Date of confirmed by patient verbally and Name and Date of confirmed by identification band. FALL SCREENING: Has the patient had 2 falls in the last year or 1 fall with injury or currently using an Ambulatory Assistive Device (Walker, Cane, Wheelchair, Crutches, etc.)? Emergency Room Patient: Screened in ED PATIENT GENDER DATA: Male PATIENT RELEVANT IMPLANT DATA REVIEWED: Not Applicable ALLERGIES: Reviewed and unchanged CONTRAST ALLERGY: NO. EXAM: CT -CONTRAST INDUCED NEPHROPATHY RISK FACTORS: Not applicable CREATININE: Creatinine Date Value Ref Range Status 04/04/2020 0.83 0.73 - 1.22 mg/dL Final 08/24/2017 0.87 0.67 - 1.17 mg/dL Final 07/19/2015 0.69 0.67 - 1.17 mg/dL Final eGFR-All Other Races Date Value Ref Range Status 04/04/2020 >60 . Final Comment: eGFR (Estimated GFR) Units of measure: mL/min/1.73 meters squared eGFR is derived from the reexpressed MDRD Study equation using the following parameters: serum creatinine, age, gender and race. The creatinine assay has been calibrated to be traceable to IDMS. An eGFR <60 mL/min/1.73m2 for >3 months is consistent with chronic kidney disease. Refer to KDOQI guidelines for clinical interpretation. In patients with unstable renal function, e.g. those with acute kidney injury, the eGFR may not accurately reflect actual GFR. eGFR- Date Value Ref Range Status 04/04/2020 >60 Final P.O.C.T. RESULTS: N/A April 04, 2020 TREATMENT: N/A PERIPHERAL IV DATA: Inpatient - refer to LDA documentation RADIOLOGY DEPARTMENT: CT; Exam(s) Completed: Abdomen/Pelvis SIGNATURE: MAVERICK Pierre PATIENT NAME: Warner Wilson DATE: April 04, 2020 TIME: 12:56 PM Normal [facility] Urinalysis with Microscopico n 04-04-2020 Bilirubin, Urine Negative Normal Negative [facility] Cast SEE COMMENT Normal 0 [facility] Comment on above: Result Comment: 0 Clarity (U) Clear Normal Clear [facility] Color (U) Yellow Normal Yellow [facility] Glucose Ql (U) Negative Normal Negative [facility] Hemoglobin/Blood,Ur Negative Normal Negative [facility] Ketones Ql (U) Negative Normal Negative [facility] Leukest Negative Normal Negative [facility] Nitrite Ql (U) Negative Normal Negative [facility] pH (Bld) 7.0 Normal 5.0-8.0 [facility] Protein (U) [Mass/Vol] Negative Normal Negative [facility] RBC (U) [#/Vol] 0-3 Normal 0-3 [facility] Specific [place], Ur 1.010 Normal 1.005-1.030 [facility] Urobilinogen Qn (U) 0.2 E.U./dL Normal 0.2-1.0 [facility] WBC (Bld) [#/Vol] 0-5 Normal 0-5 [facility] spital Throat Cultureon 10-14-2017 Throat Culture Test performed at [facility] No group A beta streptococci cultured. Normal [facility] Comment on above: Performed By: #### C THRT ####[address] [address] CHATO by IFA with Reflex (Rheu m)on 08-26-2017 CHATO by IFA with Reflex (Rheum) SEE BELOW Normal [facility] Comment on above: Result Comment: CHATO Negative NEGATNormal range : negative at <1:80 serum dilution.Approximately 6% of patients with connective tissue diseases with lowpositive EIA values are negative by IFA. Recommend follow-up with specificantinuclear antibodies if clinically indicated.CHATO Titer Negative NEGAT Normal range : negative at <1:80 serum dilution.CHATO Pattern SEE BELOWNot applicable for negative result.Performing Laboratory:[facility] [id number] [place] [address] Performed By: #### A NAPX ####[address] [address] Comprehensive Panelon 2017 Alkaline phosphatase (ALP) 81 U/L Normal 46-116 [facility] Comment on above: Performed By: #### P 14 ####[address] [address] Protein 7.1 g/dL Normal 6.4-8.2 [facility] Comment on above: Performed By: #### P 14 ####[address] [address] Bilirubin Ql (U) 0.4 mg/dL Normal 0.2-1.0 [facility] Comment on above: Performed By: #### P 14 ####[facility] [place], [place] [address] Alanine aminotransferase (ALT) 21 U/L Normal 12-78 [facility] Comment on above: Performed By: #### P 14 ####[facility] [place], [place] [address] Creatinine 0.87 mg/dL Normal 0.67-1.17 [facility] Comment on above: Performed By: #### P 14 ####[facility] [place], [place] [address] Aspartate aminotransferase (AST) 10 U/L Normal 9-37 [facility] Comment on above: Performed By: #### P 14 ####[place] [address] Glucose mass conc 65 mg/dL Low 70-99 [facility] Comment on above: Performed By: #### P 14 ####[place] [address] Anion gap 7 mmol/L Low 8-16 [facility] Comment on above: Performed By: #### P 14 ####[address] [address] CO2 30 mmol/L Normal 21-32 [facility] Comment on above: Performed By: #### P 14 ####[address] [address] Albumin 3.9 g/dL Normal 3.4-5.0 [facility] Comment on above: Performed By: #### P 14 ####[address] [address] Calcium 8.6 mg/dL Normal 8.5-10.1 [facility] Comment on above: Performed By: #### P 14 ####[address] [address] Urea nitrogen 16 mg/dL Normal 7-18 [facility] Comment on above: Performed By: #### P 14 ####[place] [address] Chloride 106 mmol/L Normal 98-107 [facility] Comment on above: Performed By: #### P 14 ####[place] [address] Potassium molar conc 4.3 mmol/L Normal 3.5-5.1 [facility] Comment on above: Performed By: #### P 14 ####[place] [address] Sodium 139 mmol/L Normal 136-145 [facility] Comment on above: Performed By: #### P 14 ####[place] [address] MDRD GFRon 08-24-2017 eGFR (non-black) mL/min/{1.73_m2} Normal >60mL/m in/1.73 m2 [facility] Comment on above: Result Comment: If t he patient is , multiply the result by 1.210. Performed By: #### G FR ####[place] [address] Sed Rateon 08-24-2017 Sed Rate 2 mm/hr Normal 0-15 [facility] Comment on above: Performed By: #### E SR ####[place] [address] TSH, 3rd generationon 2017 TSH, 3rd generation 0.931 uIU/mL Normal 0.358-3.740 [facility] Comment on above: Performed By: #### T SH3 ####[place] [address] Hemogram/Diffon 07-27-2017 Abs Immature Grans 0.02 thou/cmm Normal 0.00-0.05 [facility] Comment on above: Performed By: #### C BCD1 ####[place] [address] Abs. Baso 0.04 thou/cmm Normal 0.01-0.08 [facility] Comment on above: Performed By: #### C BCD1 ####[place] [address] Abs. Nash 0.33 thou/cmm Normal 0.30-0.82 [facility] Comment on above: Performed By: #### C BCD1 ####[facility] [place], [place] [address] Abs. Neut 2.68 thou/cmm Normal 1.78-5.38 [facility] Comment on above: Performed By: #### C BCD1 ####[address] [address] Basophils/100 WBC Auto (Bld) 0.8 % Normal [facility] Comment on above: Performed By: #### C BCD1 ####[address] [address] Eosinophils 0.07 thou/cmm Normal 0.04-0.54 [facility] Comment on above: Performed By: #### C BCD1 ####[place] [address] Eosinophils/100 leukocytes 1.5 % Normal [facility] Comment on above: Performed By: #### C BCD1 ####[place] [address] Erythrocyte distribution width Auto Ratio (RBC) 11.7 % Normal 11.6-14.4 [facility] Comment on above: Performed By: #### C BCD1 ####[place] [address] Erythrocytes (RBC) 5.29 mil/cmm Normal 4.63-6.08 [facility] Comment on above: Performed By: #### C BCD1 ####[place] [address] Hematocrit (HCT) 46.0 % Normal 40.1-51.0 [facility] Comment on above: Performed By: #### C BCD1 ####[place] [address] Hemoglobin mass conc (Bld) 15.8 g/dL Normal 13.7-17.5 [facility] Comment on above: Performed By: #### C BCD1 ####[place] [address] Immature Grans 0.40 % Normal [facility] Comment on above: Performed By: #### C BCD1 ####[facility] [place], [place] [address] Lymphocytes 1.60 thou/cmm Normal 0.84-2.85 [facility] Comment on above: Performed By: #### C BCD1 ####[facility] [place], [place] [address] Lymphocytes/100 leukocytes 33.8 % Normal [facility] Comment on above: Performed By: #### C BCD1 ####[facility] [place], [place] [address] MCH 29.9 pg Normal 25.7-32.2 [facility] Comment on above: Performed By: #### C BCD1 ####[address] [address] MCHC mass conc (RBC) 34.3 % Normal 32.3-36.5 [facility] Comment on above: Performed By: #### C BCD1 ####[address] [address] MCV 87.0 fL Normal 83.2-95.6 [facility] Comment on above: Performed By: #### C BCD1 ####[address] [address] Monocytes/100 leukocytes 7.0 % Normal [facility] Comment on above: Performed By: #### C BCD1 ####[address] [address] Platelet mean volume (PMV) 10.4 fL Normal 8.7-12.0 [facility] Comment on above: Performed By: #### C BCD1 ####[address] [address] Platelets 227 thou/cmm Normal 141-365 [facility] Comment on above: Performed By: #### C BCD1 ####[address] [address] RDW SD 37.0 fl Normal 36.1-45.8 [facility] Comment on above: Performed By: #### C BCD1 ####[facility] [place], [place] [address] Seg Neutrophil 56.5 % Normal [facility] Comment on above: Performed By: #### C BCD1 ####[address] [address] WBC (Leukocytes) 4.74 thou/cmm Normal 4.23-9.07 [facility] Comment on above: Performed By: #### C BCD1 ####[place] [address] Protime/APTTon 07-27-2017 aPTT 26.1 s Normal 22.8-31.0 [facility] Comment on above: Performed By: #### G PTAP ####[place] [id number] INR Coag RelTime (PPP) 0.99 {INR} Normal [facility] Comment on above: Result Comment: Boyd dard Therapy 2.0-3.0High Dose 2.5-3.5 Performed By: #### G PTAP ####[place] [address] Prothrombin time (PT) Coag time (PPP) 10.2 s Normal 9.0-11.5 [facility] Comment on above: Performed By: #### G PTAP ####[place] [address] Vital Signs Date Time Vital Sign Value Performing Clinician Facility 08-11-2020 20:34-0500 BP Diastolic 86 mm[Hg] Claudio Iqbal [facility] Work Phone: Comment on above: manual left arm 08-11-2020 20:34-0500 BP Systolic 164 mm[Hg] Claudio Iqbal [facility] Work Phone: Comment on above: manual left arm 08-11-2020 20:34-0500 Pulse (Heart Rate) 100 /min Claudio Iqbal [facility] Work Phone: 08-11-2020 20:34-0500 Pulse Oximetry 100 % Claudio Iqbal [facility] Work Phone: 08-11-2020 20:34-0500 Respiratory Rate 16 /min Claudiosebas ZENDEJAS Work Phone: 08-11-2020 18:13-0500 BMI (Body Mass Index) 32.89 kg/m2 Claudiosebas ZENDEJAS Work Phone: 08-11-2020 18:13-0500 Body Temperature 97.7 [degF] Claudiosebas Iqbal [facility] Work Phone: 08-11-2020 18:13-0500 Body weight 95.25 kg Claudiosebas Iqbal [facility] Work Phone: 08-11-2020 18:13-0500 Height 170.2 cm Claudiosebas Iqbal [facility] Work Phone: 07-31-2020 08:24-0500 Body Temperature 97.81 [degF] [facility] 07-31-2020 08:24-0500 Body weight 100.25 kg [facility] 07-31-2020 08:24-0500 BP Diastolic 82 mm[Hg] [facility] 07-31-2020 08:24-0500 BP Systolic 128 mm[Hg] [facility] 07-31-2020 08:24-0500 Height 170.2 cm [facility] 07-31-2020 08:24-0500 Pulse (Heart Rate) 95 /min [facility] 07-31-2020 08:24-0500 Pulse Oximetry 96 % [facility] 07-22-2020 17:19-0500 BP Diastolic 88 mm[Hg] [facility] [place] 07-22-2020 17:19-0500 BP Systolic 133 mm[Hg] [facility] [place] 07-22-2020 17:19-0500 Pulse (Heart Rate) 78 /min [facility] [place] 07-22-2020 17:19-0500 Pulse Oximetry 100 % [facility] , [place] 07-22-2020 17:19-0500 Respiratory Rate 16 /min [facility] [place] [facility] 17:02-0500 Body Temperature 98.91 [degF] [facility] Encounters Encounter Date Encounter Type Care Provider Facility Start: 12-07-2023 End: 12-07-2023 Emergency department patient visit [facility] Facility:[facility] Start: 10-29-2020 End: 10-29-2020 Telephone encounter Veto Polanco TOWER ERECTOR HELPER.FITNESS/WELLNESS DIRECTOR Work Phone: [facility] [place] Comment on above: Initial Consult (Gas troenterology / conf #[id number]) Start: 08-11-2020 End: 08-11-2020 Emergency department patient visit Claudio Ribeirohta Work Phone: [facility] Comment on above: Headache disorder (P rimary Dx); Diastolic blood pressure 90 mm Hg or higher Start: 08-07-2020 End: 08-07-2020 Telephone encounter Veto Cody (Glass Cutting Machine Feeder Fitter'S Assistant) Spuhler Work Phone: [facility] Comment on above: Appointment Start: 07-31-2020 End: 07-31-2020 Patient encounter procedure Veto B (Glass Cutting Machine Feeder Fitter'S Assistant) Spwandaler Work Phone: [facility] [place] Comment on above: Routine general medi breanne examination at a health care facility (Primary Dx); Obesity, Class I, BMI 30-34.9; Bacterial sinusitis; Acute cervical myofascial strain, initial encounter Start: 07-22-2020 End: 07-22-2020 Emergency department patient visit Claudio Iqbal Work Phone: [facility] Comment on above: Diastolic blood pres sure 90 mm Hg or higher (Primary Dx) Start: 06-26-2020 End: 06-26-2020 Patient encounter procedure Veto Cody (Glass Cutting Machine Feeder Fitter'S Assistant) Spuhler Work Phone: [facility] [place] Comment on above: Carpal tunnel syndro me, bilateral (Primary Dx); Acute non-recurrent sinusitis of other sinus; Family history of colon cancer in mother Start: 06-26-2020 End: 06-26-2020 Telemedicine consultation with patient Veto Ross (Mecca Adames) Dasia Work Phone: [facility] Start: 10-14-2017 End: 10-15-2017 Ambulatory VETO SPUHLER Facility:[facility] Start: 10-14-2017 End: 10-14-2017 Ambulatory IMCA Facility:[facility] Start: 08-24-2017 End: 08-25-2017 Ambulatory VETO SPUHLER Facility:[facility] Start: 07-27-2017 End: 07-28-2017 [facility] Start: 07-27-2017 End: 07-27-2017 Ambulatory [facility] Procedures Date Procedure Procedure Detail Performing Clinician Start: 08-11-2020 Ct head/brain w/o co ntrast material Claudio CollabFinder Work Phone: Start: 08-11-2020 Assay of magnesium Levi it Iqbal Work Phone: Start: 08-11-2020 Assay of thyroid sti mulating hormone tsh Claudio Iqbal Work Phone: Start: 08-11-2020 Basic metabolic pane l calcium total Claudio Iqbal Work Phone: Start: 08-11-2020 Blood count complete auto&auto difrntl wbc Claudio Iqbal Work Phone: Start: 08-11-2020 Carboxyhemoglobin quantitative Claudio Iqbal Work Phone: Start: 08-11-2020 Sedimentation rate r bc automated Claudio Iqbal Work Phone: Start: 07-31-2020 Adult depression scr eening assessment Veto Polanco Plan of Treatment Date Care Activity Detail Author Start: 03-23-2022 DTaP/Tdap/Td vaccine (6 - Tdap) DTaP/Tdap/Td vaccine (6 - Tdap) [facility] Work Phone: Start: 03-23-2022 Urine microalbumin profile DTAP,TDAP,TD (6 - Tdap) [facility] Start: 07-31-2021 Adult depression screening assessment DEPRESSION SCREENING [facility] Start: 02-19-2021 Influenza vaccination INFLUENZA (Season Ended) [facility] Start: 02-20-2020 Influenza vaccination [facility] Start: 2017 HEPATITIS C SCREENING HEPATITIS C SCREENING [facility] Start: 2017 HIV SCREENING HIV SCREENING [facility] Start: 08-16-2015 MENINGOCOCCAL B: Consider based on risk (2 of 2 - Risk Bexsero 2-dose series) MENINGOCOCCAL B: Consider based on risk (2 of 2 - Risk Bexsero 2-dose series) [facility] Start: 2014 HIV screening HIV screen [facility] Work Phone: Start: 2010 HPV VACCINE (1 - Male 2-dose series) HPV VACCINE (1 - Male 2-dose series) [facility] Start: 2000 Varicella vaccine (1 of 2 - 2-dose childhood series) Varicella vaccine (1 of 2 - 2-dose childhood series) [facility] Work Phone: Start: 1999 Hepatitis C screening Hepatitis C screen [facility] Work Phone: Carboxyhemoglobin Carboxyhemoglo bin Lab STAT 08/11/2020 6:56 PM EST [facility] Work Phone: [facility] Immunizations Immunization Date Immunization Notes Care Provider Maggie copeland 04-08-2016 meningococcal polysa ccharide vaccine (MPSV4) [facility] 03-23-2012 diphtheria, tetanus toxoids and acellular pertussis vaccine, Haemophilus influenzae type b conjugate, and poliovirus vaccine, inactivated ([id number]) [facility] 02-26-2005 measles, mumps and r ubella virus vaccine [facility] 06-09-2000 diphtheria, tetanus toxoids and acellular pertussis vaccine [facility] 06-09-2000 hepatitis B vaccine, pediatric or pediatric/adolescent dosage [facility] 06-09-2000 measles, mumps and r ubella virus vaccine Veto [facility] 01-10-2000 hepatitis B vaccine, pediatric or pediatric/adolescent dosage Veto [facility] in 1999 diphtheria, tetanus toxoids and acellular pertussis vaccine [facility] 1999 haemophilus influenz ae type b vaccine, HbOC conjugate [facility] 1999 hepatitis B vaccine, pediatric or pediatric/adolescent dosage [facility] 1999 diphtheria, tetanus toxoids and acellular pertussis vaccine [facility] 1999 haemophilus influenz ae type b vaccine, HbOC conjugate [facility] 1999 diphtheria, tetanus toxoids and acellular pertussis vaccine [facility] 1999 haemophilus influenz ae type b vaccine, HbOC conjugate [facility] Payers Date Payer Category Payer Self-pay 2023 Unknown [id number] 2016 Private Health Insurance [facility] CHOICE PLUS [id number] 2016-Present HMO [id number] 2016 Unknown [id number] Unknown [id number] Social History Date Type Detail Facility Start: 06-26-2020 End: 10-25-2020 Tobacco smoking status NHIS Never smoker [facility] Start: 06-26-2020 End: 10-25-2020 [facility] and exposure [facility] Start: 06-26-2020 End: 10-25-2020 Alcohol intake Current non-drinker of alcohol (finding) [facility] Start: 1999 Sex Assigned At Not on file [facility] Exposure to SARS-CoV -2 (event) Not sure [facility] Progress note 11-22-2021 Note Date & Type Note Facility 11-22-2021 Note HNO ID: [id number] Author: Interface Note Service: ? Author Type: ? Type: Progress Notes Filed: 11/24/2021 8:17 AM Note Text: Epic Scheduled Downtime: 11/22/2021 1:00:00 AM to 11/22/2021 2:35:00 AM [facility] Note 10-29-2020 Telephone Encounter - Simona Guillory - 10/29/2020 11:49 AM EDT Note Date & Type Note Facility 10-29-2020 Miscellaneous Notes Referral submitted to [facility] Contact Center ([phone]). They will contact the patient to schedule. 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 It required patient-provider interaction for the medical decision making as documented below. Warner Wilson is a 20 year old male seen for re-establish care and multiple concerns. Last seen in 2018 for Raynaud's and was treated with fluoxetine 1. Bilateral hand numbness. Intermittent. Worse during th night, wakes patient up from sleep. He states that he is unable to go back to sleep, due to pain. Describes entire hand numbness. Is able to work, only intermittent symptoms during the day 2. Headache started last week. Behind left eye. Describes as a constant pressure. He states that ifhe looks somewhere too quickly , he has pain. He only wears glasses when he reads. He has an astigmatism. Denies any visual changes. He denies fever. + nasal congestion - hs only. + constant post-nasal drip + ear pressure, jerad in the left ear. 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 Fam Hx: - mother diagnosed with colon cancer at age 52 and breast cancer at age 54 HISTORY REVIEWED (electronic chart updated): PAST MEDICAL HISTORY Diagnosis Date Carpal tunnel syndrome on both sides 06/2020 Family history of colon cancer in mother age: 52 - needs screened at 40 Raynaud's syndrome PAST SURGICAL HISTORY Procedure Laterality Date ADENOIDECTOMY HX 2008 TYMPANOSTOMY LOCAL; UNILATERAL 2009 X 2 FAMILY HISTORY Problem Relation Age of Onset Asthma Sister Mental illness Sister Breast Cancer Other other (DEMENTIA) Other other (DIABETES MELLITUS) Other other (HEART DISEASE) Other other (HYPERLIPDEMIA) Other Hypertension Other other (MIGRAINE) Other other (RHEUMATOID ARTHRITIS) Other Skin Cancer Other Stroke Other other (THYROID DISORDER) Other other (COLITIS) Other Colon Cancer Mother 52 Breast Cancer Mother 54 Ulcerative Colitis Mother Social History Tobacco Use Smoking status: Never Smoker Smokeless tobacco: Never Used Substance Use Topics Alcohol use: No Drug use: Not on file Current Outpatient Medications Medication Sig amoxicillin-clavulanic acid (AUGMENTIN) 875-125 mg per tablet Take 1 tablet by mouth every 12 hoursfor 7 days. naproxen (NAPROSYN) 500 mg tablet Take 1 tablet by mouth twice daily with meals. FOR PAIN. TAKE WITH FOOD. No current facility-administered medications for this visit. ALLERGIES No Known Allergies REVIEW OF SYSTEMS: GENERAL: no fever HEENT: see HPI RESPIRATORY: no cough NEURO: admits to paresthesia in the bilateral hand PHYSICAL EXAMINATION: VIDEO EXAM: (if completed, performed via video enabled technology) GENERAL: alert and appropriate, in no distress, well-hydrated, well nourished and happy, smiling, interactive SKIN: no rash noted HEAD: normocephalic, no abnormality or lesion noted EYES: no injection and visual acuity is grossly normal EARS: external ears normal, no mastoid tenderness NOSE: external nose normal without rhinorrhea and + left maxillary sinus tenderness to palpation OROPHARYNX: moist mucus membranes, no tonsillar hypertrophy/exudate, uvula midline and pharynx non-erythematous, lips, teeth and gums are without obvious lesion RESPIRATORY: breathing non-labored and no grunting/flaring/retractions EXTREMITIES: moves bilateral hands/ arms without deficit NEUROLOGIC: + Phalen's manuever ASSESSMENT: (G56.03) Carpal tunnel syndrome, bilateral (primary encounter diagnosis) (J01.80) Acute non-recurrent sinusitis of other sinus (Z80.0) Family history of colon cancer in mother PLAN: 1. Discussed diagnosis with pt. Start Naprosyn and cock-up splints at hs. If no improvement with conservative measures, he will contact office for referral to hand specialist 2. Start Augmentin and Naprosyn for pain. If headache does not improve after this, he will contact office for a referral to opthalmology 3.he will need screening colonoscopy at age 39 There are no Patient Instructions on file for this visit. Veto Polanco APRN.FITNESS/WELLNESS DIRECTOR documented in this encounter* Veto Polanco (Mecca Adames), GERDA - 07/31/2020 8:26 AM EST WELL VISIT PEDIATRIC MALE 18+YRS OLD SERVICE DATE: 07/31/2020 SERVICE TIME: 8:20 AM Warner is a 20 year old male who presents today for well exam. SUBJECTIVE CONCERNS: Headaches ED visit 07/22/20 at [place] for chest pain, tinnitus , had a negative work-up. He denies chest pain today HISTORY ACTIVE PROBLEM LIST Obesity, Class I, Bmi 30-34.9 - 07/31/2020 Family History of Colon Cancer in Mother Comment: age: 52 - needs screened at 40 Carpal Tunnel Syndrome, Bilateral - 06/21/2020 Raynaud's Phenomenon Without Gangrene - 08/24/2017 Trapezius Strain, Left, Initial Encounter - 08/24/2017 Recurrent Epistaxis - 07/27/2017 Intrinsic Allergic Eczema - 07/27/2017 PAST MEDICAL HISTORY Diagnosis Date Carpal tunnel syndrome on both sides 06/2020 Family history of colon cancer in mother age: 52 - needs screened at 40 History of tympanostomy tube placement Raynaud's syndrome PAST SURGICAL HISTORY Procedure Laterality Date ADENOIDECTOMY HX 2009 TYMPANOSTOMY LOCAL; UNILATERAL 2009 X 2 Allergies: ALLERGIES No Known Allergies Medications: doxycycline hyclate (VIBRAMYCIN) 100 mg capsule Take 1 capsule by mouth twice daily for 7 days. cyclobenzaprine (FLEXERIL) 10 mg tablet Take 1 tablet by mouth twice daily as needed. naproxen (NAPROSYN) 500 mg tablet Take 1 tablet by mouth twice daily as needed. FOR PAIN. TAKE WITHFOOD. Family History: FAMILY HISTORY Problem Relation Age of Onset Asthma Sister Mental illness Sister Breast Cancer Other other (DEMENTIA) Other other (DIABETES MELLITUS) Other other (HEART DISEASE) Other other (HYPERLIPDEMIA) Other Hypertension Other other (MIGRAINE) Other other (RHEUMATOID ARTHRITIS) Other Skin Cancer Other Stroke Other other (THYROID DISORDER) Other other (COLITIS) Other Colon Cancer Mother 52 Breast Cancer Mother 54 Ulcerative Colitis Mother Social History Social History Narrative Not on file Smoking Exposure: Do you spend a significant amount of time with anyone who smokes? 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 Safety: Reviewed seat belts and smoke detectors Diet: -Eats 2 meals per day and 2 snacks per day Elimination: no concerns, normal size and consistency Dental: dental care current Sleep: -no sleep concerns -television in bedroom -computer in bedroom -9-10 hours of sleep Substance use: none Concerns: - headache. Daily headache for past few days. - multiple locations, goes to his neck. Reports neck tightness. Has some relief with Naprosynn He and his are - due in January Sexual History: Attraction: female Sexually Active: Yes Number of lifetime partners: 1 Contraception: none History of STI: No Hx of STI/HIV testing? No Any new partners since last testing? No Penile discharge: No Body image: satisfactory REVIEW OF SYSTEMS GENERAL: No fevers EYES: No vision concerns ENT: he was treated for sinusitis last month with Augmentin, headache did improve for a while, but is now returned : + left ear tinnitus RESPIRATORY: Negative for cough, wheezing or respiratory distress CARDIOVASCULAR: Negative for chest pain, syncope, lightheadness or heart racing SKIN: Negative for lesions, rash, and itching ENDOCRINE: No growth concerns OBJECTIVE Physical Exam: BP 128/82 Pulse 95 Temp 36.6 C (97.8 F) (Temporal) Ht 170.2 cm (5' 7) Wt 100.2 kg (221 lb) SpO2 96% BMI 34.61 kg/m Blood pressure percentiles are not available for patients who are 18 years or older. Normalized BMI data available only for age 0 to 20 years. Last BMI: Wt: 90.7 kg (200 lb) BMI: 31.32 kg/(m^2) Last 4 Encounter Wt Readings: Date: Wt: 07/31/2020 100.2 kg (221 lb) 04/04/2020 90.7 kg (200 lb) 10/14/2017 85.7 kg (189 lb) (89 %, Z= 1.25)* 08/24/2017 82.1 kg (181 lb) (85 %, Z= 1.05)* Last 4 Encounter Ht Readings: Date: Ht: 07/31/2020 170.2 cm (5' 7) 10/14/2017 170.2 cm (5' 7) (19 %, Z= -0.87)* 08/24/2017 170.2 cm (5' 7) (19 %, Z= -0.87)* 07/27/2017 167.6 cm (5' 6) (11 %, Z= -1.21)* Component Latest Ref Rng & Units 04/04/2020 WBC 3.70 - 11.00 k/uL 4.65 RBC 4.20 - 6.00 m/uL 5.00 Hemoglobin 13.0 - 17.0 g/dL 14.7 Hematocrit 39.0 - 51.0 % 42.4 MCV 80.0 - 100.0 fL 84.8 MCH 26.0 - 34.0 pG 29.4 MCHC 30.5 - 36.0 g/dL 34.7 RDW-CV 11.5 - 15.0 % 11.5 Platelet Count 150 - 400 k/uL 218 MPV 9.0 - 12.7 fL 9.8 Neut% % 56.8 Abs Neut (ANC) 1.45 - 7.50 k/uL 2.63 Lymph% % 30.5 Abs Lymph 1.00 - 4.00 k/uL 1.42 Nash% % 9.2 Abs Nash <0.87 k/uL 0.43 Eosin% % 2.6 Abs Eosin <0.46 k/uL 0.12 Baso% % 0.9 Abs Baso <0.11 k/uL 0.04 Nucleated Reds 0 /100 WBC 0.0 Absolute nRBC <0.01 k/uL <0.01 Diff Type Auto Diff Protein, Total 6.3 - 8.0 g/dL 7.4 Albumin 3.9 - 4.9 g/dL 4.9 Calcium 8.5 - 10.2 mg/dL 9.7 Bilirubin, Total 0.2 - 1.3 mg/dL 0.3 Alkaline Phosphatase 38 - 113 U/L 99 AST 14 - 40 U/L 15 Glucose 74 - 99 mg/dL 84 BUN 9 - 24 mg/dL 11 Creatinine 0.73 - 1.22 mg/dL 0.83 Sodium 136 - 144 mmol/L 137 Potassium 3.7 - 5.1 mmol/L 4.3 Chloride 97 - 105 mmol/L 101 CO2 22 - 30 mmol/L 29 Anion Gap 9 - 18 mmol/L 7 (L) ALT 10 - 54 U/L 17 eGFR- >60 eGFR-All Other Races . >60 Color Yellow Yellow Clarity Clear Clear Glucose, Urine Negative mg/dL Negative Bilirubin, Urine Negative Negative Ketones, Urine Negative Negative Specific [place], Ur 1.005 - 1.030 1.010 Hemoglobin/Blood,Ur Negative Negative pH, Urine 5.0 - 8.0 7.0 Protein, Urine Negative Negative Urobilinogen 0.2 - 1.0 E.U./dL 0.2 Nitrites Negative Negative Leukest Negative Negative WBC, Urine 0 - 5 /HPF 0-5 RBC, Urine 0 - 3 /HPF 0-3 Cast 0 /LPF SEE COMMENT Magnesium 1.7 - 2.3 mg/dL 1.9 Lipase 16 - 61 U/L 18 General: Well developed, No acute distress, Obese Head: normocephalic Eyes: conjunctivae/corneas clear Ears: right ear serous otitis, bilateral scarring Nose: purulent rhinorrhea, mucosal erythema and mucosal edema Oropharynx: moist mucous membranes, no erythema or exudate Neck: Supple, no adenopathy; thyroid symmetric, normal size, no bruits Spine: Back symmetric, no curvature, but decreased ROM of cervical spine Resp: lungs clear to auscultation Heart: RRR , Normal S1 and S2. , No murmurs Chest: symmetric, no lesions Extremities: No clubbing, cyanosis, or edema., No deformities or skin discoloration. Good capillaryrefill. Full range of motion. Neuro: No focal deficits or abnormal findings present Skin: no rashes, lesions or jaundice ASSESSMENT & PLAN: Encounter Diagnosis ICD-10-CM 1. Routine general medical examination at a [facility] care facility Z00.00 2. Obesity, Class I, BMI 30-34.9 E66.9 3. Bacterial sinusitis J32.9 doxycycline hyclate (VIBRAMYCIN) 100 mg capsule B96.89 4. Acute cervical myofascial strain, initial encounter S16.1XXA cyclobenzaprine (FLEXERIL) 10 mg tablet naproxen (NAPROSYN) 500 mg tablet SIGNATURE: Kianna Candelaria MA PATIENT NAME: Warner Wilson DATE: July 31, 2020 TIME: 8:26 AM Electronically signed by Veto Ross (Glass Cutting Machine Feeder Fitter'S Assistant) GERDA Polanco at 07/31/2020 9:04 AM EST documented in this encounter Assessments Diagnosis Carpal tunnel syndrome, bilateral- Primary Carpal tunnel syndrome Acute non-recurrent sinusitis of other sinus Family history of colon cancer in mother Diagnosis Diastolic blood pressure 90 mm Hg or higher- Primary Diagnosis Routine general medical examination at a health care facility- Primary Obesity, Class I, BMI 30-34.9 Obesity, unspecified Bacterial sinusitis Unspecified sinusitis (chronic) Acute cervical myofascial strain, initial encounter Diagnosis Headache disorder- Primary Headache Diastolic blood pressure 90 mm Hg or higher Discharge Instructions * Attachments The following attachments cannot be sent through Care Everywhere. * Chest Pain (Uzbek) documented in this encounter* Attachments The following attachments cannot be sent through Care Everywhere. * Headache (Uzbek) * Blood Pressure: Elevated (Uzbek) documented in this encounter Instructions * Patient Instructions* Kianna Candelaria (Jennifer) - 07/31/2020 8:26 AM EST Neck and Upper Back Tension These exercises are designed to stretch the muscles that contribute to neck and upper back pain. For the best results do them every morning and evening. Slowly stretch in a relaxed, sustained way with your attention focused on the area being stretched. Do not bounce up and down or stretch to the point of pain. Go to the point of mild tension. Relax as you hold for 5-20 seconds. Start by sitting in a firm chair in a comfortable position. 1. Allow the head to move forward and to one side until you feel a stretch along the opposite side of the neck. Hold for 10 seconds repeat to other side. 2. Facing forward lean your head sideways towards your shoulder. Hold for 10 seconds, each side. 3. Sitting up straight, look slowly to the right until you feel a stretch. Hold for 10 seconds thenrepeat to the left. 4. Repeat steps 1-3. 5. Interlace fingers, then straighten arms pushing palms out and forward. Hold 20 seconds, relax, then repeat. 6. Bring interlaced fingers above your head. Hold 10 seconds, relax, repeat two more times. 7. Pull interlaced fingers to right and hold for 15 seconds. Repeat on left side. 8. Hold right elbow with left hand, then gently pull elbows behind the head. Hold 30 seconds, each arm. DO NOT OVERSTRETCH! 9. Gently pull right elbow towards your left shoulder as you look over your right shoulder. Hold 10seconds and repeat on other side. 10. Interlace fingers behind your head and pull the shoulder blades together. Hold for 10 seconds, relax, repeat two more times. 11. Lean forward in the chair and hold for 45-[address] both hands, shoulder width apart on top of a tall piece of furniture or counter. Let yourupper body drop towards the floor as you keep your knees soft, slightly bent. 13. Lean your head sideways towards your left shoulder as your left hand pulls the right arm down and across, behind your back. Hold for 10 seconds and repeat on other side. . Electronically signed by Veto Ross (Glass Cutting Machine Feeder Fitter'S Assistant) GERDA Polanco at 07/31/2020 8:57 AM EST documented in this encounter Reason for Referral Status Reason Specialty Diagnoses / Procedures Referred By Contact Referred To Contact Open Specialty Services Required Neurology Diagnoses Headache disorder Claudio Iqbal MD [address] [place] [address] [facility] Samantha [address] [place] [address] Scheduling Instructions [facility] - [place] [address] [place], [place] [address] Additional Source Comments (unrecognized sect ion and content) No Status Records FoundNo Status Records FoundNo Status Records FoundNo Status Records FoundNo Status Records FoundNo Status Records FoundNo Status Records Found INFORMATION SOURCE (unrecogn ized section and content) DATE CREATED AUTHOR 12/09/2017 [facility] DATE CREATED AUTHOR AUTHOR'S ORGANIZ ATION 04/06/2020 [facility] DATE CREATED AUTHOR AUTHOR'S ORGANIZ ATION 08/09/2020 [facility] DATE CREATED AUTHOR AUTHOR'S ORGANIZ ATION 08/17/2020 [facility] DATE CREATED AUTHOR AUTHOR'S ORGANIZ ATION 11/02/2020 [facility] DATE CREATED AUTHOR AUTHOR'S ORGANIZ ATION 11/24/2021 [facility] DATE CREATED AUTHOR AUTHOR'S ORGANIZ ATION 12/21/2023 [facility] Source Comments (unrecognize d section and content) In the event this informatio n is protected by the Federal Confidentiality of Alcohol and Drug Abuse Patient Records regulations: The Federal rules restrict any use of the information to criminally investigate or prosecute any alcohol or drug abuse patient.[facility] the event this information is protected by the Federal Confidentiality of Alcohol and Drug Abuse Patient Records regulations: The Federal rules restrict any use of the information to criminally investigate or prosecute any alcohol or drug abuse patient.[facility] the event this information is protected by the Federal Confidentiality of Alcohol and Drug Abuse Patient Records regulations: The Federal rules restrict any use of the information to criminally investigate or prosecute any alcohol or drug abuse patient.[facility] the event this information is protected by the Federal Confidentiality of Alcohol and Drug Abuse Patient Records regulations: The Federal rules restrict any use of the information to criminally investigate or prosecute any alcohol or drug abuse patient.[facility] Reason for Visit (unrecogniz ed section and content) Reason Comments Establish Care Multiple Concerns Reason Comments Chest Pain Tinnitus Right ear Reason Comments Physical Reason Comments Appointment Reason Comments Headache Reason Comments Initial Consult Gastroenterology / c onf #[id number] Kianna Candelaria) - 07/31/2020 8:25 AM EST Nursing Notes (unrecognized section and content) Warner Wilson is a 20 year old male who presents for Physical Kianna Candelaria MA documented in this encounter Telephone Encounter - Krystal Watts - 08/07/2020 12:21 PM ESTTelephone Encounter - Antonietta Busby - 08/07/2020 9:49 AM ESTTelephone Encounter - Antonietta Busby - 08/07/2020 9:48 AM EST Miscellaneous Notes (unrecog nized section and content) I called patient and scheduled him for . I called and left message for patient as I did not realize I was scheduling for next week to see if he wanted to wait until then for Veto or see someone else sooner. 08/07/2020 Krystal Watts Wojciech Rice. Can you please call and schedule this pt for an OV or VV? Thanks ----- Message from Mireya Joseph sent at 08/07/2020 9:32 AM EST ----- Regarding: Medicine / Speular / Severe Headache Subject Line Format: Medicine / [Provider Name] / [Issue] Patient has been identified by name and Date of (Y/N): y Patient: Warner Wilson Date of : 2000 Provider for this encounter: Veto Polanco APRN.CNP Reason for the call/escalation: Patient was experiencing what he stated as a sinus Infection, severe headache, eye pain, and lump on top right side of head. Tried to transfer to office but he was at work and didn't have time. Patient stated he would call back but would also like for the office to call him to schedule as well. Person calling if other than patient: na Return call to if other than patient: na Best contact number: [phone] Mireya Rosa August 07, 2020 9:33 AM documented in this encounter Ordered Prescriptions (unrec ognized section and content) Prescription Sig Dispensed Refills Start Date End Da te metoclopramide (REGLAN) 10 MG tablet Take 1 tablet by mouth 4 times daily as needed (headache) 20 tablet 0 08/11/2020 08/18/2020 FOR RECORDS PERTAINING TO PATIENTS WHO ARE OR HAVE BEEN ENROLLED IN A CHEMICAL DEPENDENCY/SUBSTANCEABUSE PROGRAM, SOME INFORMATION MAY BE OMITTED. This clinical summary was aggregated from multiple sources. Caution should be exercised in using it in the provision of clinical care. This summary normalizes information from multiple sources, and as a consequence, information in this document may materially change the coding, format and clinical context of patient data. In addition, data may be omitted in some cases. CLINICAL DECISIONS SHOULD BE BASED ON THE PRIMARY CLINICAL RECORDS. [employer] provides no warranty or guarantee of the accuracy or completeness of information in this document.
== END 2025-06-05 15:53 | disposition home or self-care (01) ==
PROVIDERS: Emergency Provider Emergency Medicine; Visit Provider Emergency Medicine
DX: M79.605 Pain in left leg (principal); F17.200 Nicotine dependence, unspecified, uncomplicated
CPT/HCPCS: 93971; 99284